=== PATIENT | male | born 1955 | race Caucasian/White ===

== ENCOUNTER → 2016-08-19 | Outpatient (CLI) | payer BC ==
[~2016-08-19] MED LIST: ASPI81TA28 PO; DESM0.2T2 PO; MULT-506 PO; PRED-301 PO
== END | disposition home or self-care (01) ==
LOC: C.LAB1850 10:54
PROVIDERS: ATTEND Internal Medicine
DX: E78.00 Pure hypercholesterolemia, unspecified (principal)

== ENCOUNTER → 2017-03-25 | Outpatient (CLI) | payer BC ==
--- NOTE | 2017-03-25 11:13 | DIAGNOSTIC IMAGING REPORT ---
(CHEST) THORAX WITHOUT CT DOSE: 554.69 mGy.cm HISTORY: Cough. Sarcoidosis. K21.9 Gastroesophageal reflux [id number] TECHNIQUE: Multiaxial CT images of the chest were performed without contrast. A dose lowering technique was utilized adhering to the principles of ALARA. COMPARISON: Chest 03/11/2016. FINDINGS: The central airways are patent. No pneumothorax. No pleural effusions. Multiple scattered tiny calcified and noncalcified pulmonary nodules measuring between 1 and 2 mm most pronounced within the right upper lung zone. There is subtle nodular thickening along the fissures. Mild bronchiectasis and subtle subpleural nodularity. No focal lung consolidations to suggest pneumonia. Focal thickening and irregularity at a bronchovascular bundle within the superior segment of the right lower lobe best seen on image 174. No suspicious lytic or blastic osseous lesions. Hepatic steatosis. The unenhanced spleen and adrenal glands are unremarkable. Mildly distended gas-filled stomach. The esophagus is also mildly distended and gas-filled. No mediastinal or hilar lymphadenopathy. There are few calcified bilateral hilar lymph nodes. Normal caliber thoracic aorta. The heart is normal in size. A single dominant right infrahilar lymph node measures 14 x 9 mm. IMPRESSION: 1. Multiple tiny scattered calcified and noncalcified pulmonary nodules measure between 1 and 2 mm most pronounced within the right upper lung zone. There is also subtle nodular thickening along the fissures and pleura. There is mild bronchiectasis. These findings can be explained by the patient's history of sarcoidosis. There is no significant mediastinal or hilar lymphadenopathy. 2. Focal area of irregularity/thickening at a bronchovascular bundle within the superior segment of the right lower lobe. This may also be due to the patient's sarcoidosis. However, six-month chest CT follow up is recommended to ensure stability. 3. No focal lung consolidations to suggest pneumonia. 4. Moderately distended gas-filled stomach. There is also a mildly distended gas-filled esophagus. Electronically signed by: Vahid Lacey M.D. 03/25/2017 11:12 AM Dictated Date/Time: 03/25/2017 10:59 AM
== END | disposition home or self-care (01) ==
LOC: C.CTS 10:47
PROVIDERS: ATTEND Internal Medicine
DX: D86.9 Sarcoidosis, unspecified (principal); R05 Cough; K21.9 Gastro-esophageal reflux disease without esophagitis; R91.8 Other nonspecific abnormal finding of lung field

== ENCOUNTER 2024-10-13 15:54 | Observation (INO) ==
[2024-10-13 16:19] LABS: Appearance Urine Clear (Clear); Bilirubin Urine Negative (Negative); Blood Urine Negative (Negative); Color Urine Yellow; Glucose Urine UA Negative (Negative); Ketones Urine Negative (Negative); Leukocyte Esterase Urine Negative (Negative); Nitrite Urine Negative (Negative); Protein Urine Negative (Negative); Specific Gravity Urine 1.008 (1.000-1.030); Urobilinogen Urine Negative (Negative)
[2024-10-13 16:21] LABS: Basophils # (auto) 0.04 K/uL (0.00-0.20); Basophils % (auto) 0.7 %; Eosinophils % (auto) 3.6 %; Hematocrit (blood only) 43.1 % (42.0-52.0); Hemoglobin 14.7 g/dl (14.0-18.0); Immature Granulocytes # (auto) 0.01 K/uL (0.01-0.20); Immature Granulocytes % (auto) 0.2 %; Lymphocytes # (auto) 1.01 K/uL (1.20-3.40); Lymphocytes % (auto) 18.3 %; Mean Corpuscular Hemoglobin 31.1 pg (25.0-34.0); Mean Corpuscular Hgb Conc 34.1 g/dL (32.0-36.0); Mean Corpuscular Volume 91.3 fL (80.0-100.0); Mean Platelet Volume 9.6 fL (9.4-12.4); Monocytes % (auto) 16.3 %; Neutrophils # (auto) 3.35 K/uL (1.40-6.50); Neutrophils % (auto) 60.9 %; Platelet Count 173 K/uL (130-400); RDW Coefficient of Variation 13.1 % (11.5-14.5); RDW Standard Deviation 43.8 fL (36.4-46.3); Red Blood Count 4.72 M/uL (4.70-6.10); White Blood Count 5.51 K/ul (4.8-10.8)
[2024-10-13 16:39] LABS: BUN Creatinine Ratio 23.4 (10-20); Calcium 8.6 mg/dl (8.6-10.3); Creatinine Clr Calc Pharmacy 132.9 ml/min; Potassium 4.4 mmol/L (3.5-5.1)
[2024-10-13 16:47] LABS: Albumin Globulin Ratio 1.1 (0.9-2); Albumin Level 3.8 gm/dl (3.4-5.0); Bilirubin,Total 2.2 mg/dl (0.2-1.0); Globulin 3.4 gm/dl (2.5-4.0); Total Protein 7.2 gm/dl (6.0-8.3)
[2024-10-13 17:06] LABS: Thyroid Stimulating Hormone 2.419 uIu/ml (0.300-4.500)
--- NOTE | 2024-10-13 17:23 | Emergency Department Note ---
Impression & Plan Transaminitis, Cut of left hand ED Provider Note Provider: Vishal Rolle MD CHIEF COMPLAINT: Abnormal labs, fatigue HISTORY OF PRESENT ILLNESS: Patient is a 69-year-old gentleman history of sarcoidosis, hypertension, and hypothyroidism presenting here today referred from the outpatient office. Seen there today as 3 days ago he sustained a cut to his hand on the grinding wheel and the left knuckles clean these but did not seek other care. Have become red and somewhat difficult to bend the fingers but has full sensation. Has a chronic cough reported as well but given increased fatigue report and darker urine was sent for blood work. Called to come to the ER as his blood work came back showing signs of elevated liver functions. Patient denies significant abdominal pain or use of alcohol or Tylenol. Has been started on Keflex just today for the presumed infection/cellulitis of the hand. Patient denies a history of liver issues. Noted last couple months some increased fatigue but no fevers. In the last several days having some myalgias. Does occasionally eat some raw shellfish/oysters. Was work in the yard today without issue. PAST MEDICAL HISTORY: As noted above MEDICATIONS: Reviewed home medications SOCIAL HISTORY: Has a cocktail 3-4 times a week. PHYSICAL EXAM: GENERAL: alert and oriented in no acute distress on stretcher Head: normocephalic and atraumatic EYES: No injection, discharge or icterus. NECK: Trachea midline. ENT: Mucous membranes pink and moist. LUNGS: Airway patent. No retractions. Breath sounds clear with good air entry bilaterally. HEART: Regular rate and rhythm. No chest wall tenderness ABDOMEN: Soft and non-tender, without guarding or rebound. No hepatosplenomegaly or masses SKIN: Acyanotic, warm, dry, without rashes EXTREMITIES: Without swelling, tenderness or deformity with 2 less than centimeter size small partially healed lacerations in the posterior left hand just proximal to the fourth and fifth knuckle. Intact strength and movement of the hand. NEUROLOGICAL: No focal deficits. No aphasia. No facial droop or slurred speech. Ambulatory. EK beats. Normal sinus rhythm. No PVC or PAC. No acute ST segment elevation depression QTc 438. CONTINUOUS CARDIAC MONITORING: was ordered and showed a heart rate of bpm in Patient's laboratory studies and imaging reviewed. Differential includes Infection, dehydration, metabolic abnormality, hypo/hyperglycemia, electrolyte disturbance, anemia, hypoxia, cardiac sources, intracerebral event, toxicologic, neurologic, as well as other pathologies. IMPRESSION/MEDICAL DECISION MAKING: Patient without significant abdominal pain/tenderness or nausea vomiting diarrhea. Noted to have significant transaminitis today slightly elevated bilirubin. Blood work repeated here today compared to earlier from this morning. No reported use of alcohol or Tylenol. Tylenol less than as is hepatitis panel. Denies significant other GI symptoms generalized fatigue. Does have some evidence of cellulitis to the hand but no evidence of a deeper hand infection or abscess. There is a Band-Aid and clean it with alcohol briefly. Very superficial. No evidence of tendon injury. Doubt sepsis. Ultrasound with some hepatic steatosis and hepatomegaly with a contracted gallbladder. Reached out discussed with Dr. Archer gastroenterology. Please likely viral and hep a. Formal hepatitis panel was sent. Discussed with the patient. GI stated the patient could have close outpatient follow-up if he is feeling well for close monitoring of his LFTs over the next 2 days. In further communication with the patient's primary care office and provider, they have significant concerns given the elevation at this time and strongly recommended we observe the patient. As such I discussed with the patient to reach out to the hospitalist team to see if we can observe the patient for continued LFTs and again pending hepatitis panel. Discussed with the patient. He also discussed with his PCP via phone. Will have the hospitalist evaluate for further observation here. DIAGNOSIS: Fatigue, transaminitis, left hand wound DISPOSITION: Being evaluated by the hospitalist Patient was agreeable with this plan. Past Med/Surg History Problem List (Updated 10/14/24 @ 00:24 by Vishal Rolle M.D.) Cut of left hand (Acute) Transaminitis (Acute) Osteoarthritis At risk for cardiovascular event Cystic meniscus, other lateral meniscus, unspecified knee Paresthesia of both hands Chronic constipation (Acute) Subclinical hypothyroidism no current medications currently. Primary hypertension Erectile dysfunction Diabetes insipidus (Chronic) follows with PCP. Gastroesophageal reflux disease (Acute) Hypercholesterolemia (Acute) Sarcoidosis (Acute) Medical History Prediabetes Obesity (BMI 30.0-34.9) Colon polyps Chronic steroid use hx to manage patient's sarcoidosis, took patient off the steroid in the Fall 2022. History of COVID-19 Spring 2021: moderate flu like symptoms. no current issues. Hx of temporomandibular joint disorder clicks sometimes - never locked History of lumbar puncture Surgical History History of colonoscopy S/P meniscectomy L knee Family History Mother Liver cancer Other No family history of adverse response to anesthesia No family history of bleeding disorder Denies family history of Ovarian cancer Prostate cancer Myocardial infarction Breast cancer Colorectal cancer Social History Smoking Status: Never smoker Tobacco Type: Smokeless Tobacco (Dip or Chew) Second Hand Exposure: Yes; Do You Dip or Chew Tobacco: Yes; Hx Alcohol Use: Yes Alcohol type: beer Alcohol Intake Frequency Comment: "light to moderate" 1-2 drinks per day Hx Substance Use: No Preferred Language: Greenlandic Communication Ability: Effective Visual Impairment: No Limitations Hearing Ability: Normal Site Safety Representative Required: No Beliefs That Will Affect Care: None marital status: Current Living Situation: Spouse current occupational status: retired current occupation: self employed Feels Safe at Home: Yes Childhood Exposure to Second-Hand Smoke: Yes Dental Care, Regularly: Yes Physical Activity Frequency: 3-4 Times per Week Seatbelt Use: always Sunscreen Use: Yes Assistive Devices: Contacts Allergies Allergies Allergy/AdvReac Type Severity Reaction Status Date / Time No Known Drug Allergies Allergy Verified 10/13/24 11:29 Home Meds Home Medications Medication Instructions Recorded Confirmed multivitamin (Daily Multi-Vitamin 1 tab PO QAM 06/14/19 10/13/24 tablet) ferrous sulfate 325 mg (65 mg 325 mg PO QAM 08/19/23 10/13/24 iron) tablet (Feosol) Previous Rx's Medication Instructions Recorded amlodipine 2.5 mg tablet 2.5 mg PO QAM #90 tabs 03/03/24 rosuvastatin 10 mg tablet 10 mg PO QAM #90 tabs 03/16/24 desmopressin 0.2 mg tablet 0.2 mg PO TID #270 tabs 06/13/24 levothyroxine 88 mcg tablet 88 mcg PO QAM #90 tabs 12/02/24 omeprazole 20 mg capsule,delayed 20 mg PO QAM #90 caps 06/13/24 release cephalexin 500 mg capsule 500 mg PO QID 7 days #28 caps 10/13/24 fluticasone propionate 50 1 spray intranasal BID #16 grams 10/13/24 mcg/actuation nasal spray,suspension (Flonase Allergy Relief) Results & Data (ED) Vital Signs Vital Signs - 24 hr 10/13/24 15:57 10/13/24 17:02 10/13/24 17:45 Temperature 36.7 C Temperature Source Temporal Artery Scan Pulse Rate 85 75 75 Pulse Rate from SpO2 Sensor Pulse Rhythm Regular Respiratory Rate 20 15 Respiratory Effort / Characteristics Non-Labored Respiratory Depth Normal Respiratory Pattern Regular Blood Pressure 149/89 H 153/81 H Blood Pressure Mean 109 105 Blood Pressure Position Sitting Pulse Oximetry 98 Oxygen Delivery Method Room Air Sepsis Recent Fever Within 48 Hours No Sepsis New/Unexplained Change in Mental Status No Sepsis Action Taken by Nursing No Action Required 10/13/24 17:57 Temperature Temperature Source Pulse Rate 78 Pulse Rate from SpO2 Sensor 77 Pulse Rhythm Respiratory Rate 17 Respiratory Effort / Characteristics Respiratory Depth Respiratory Pattern Blood Pressure 149/88 H Blood Pressure Mean 108 Blood Pressure Position Pulse Oximetry 95 Oxygen Delivery Method Sepsis Recent Fever Within 48 Hours Sepsis New/Unexplained Change in Mental Status Sepsis Action Taken by Nursing Laboratory Data 10/13/24 16:07 10/13/24 16:07 Lab Results 10/13/24 10/13/24 Range/Units 16:00 16:07 WBC 5.51 (4.8-10.8) K/ul RBC 4.72 (4.70-6.10) M/uL Hgb 14.7 (14.0-18.0) g/dl Hct 43.1 (42.0-52.0) % MCV 91.3 (80.0-100.0) fL MCH 31.1 (25.0-34.0) pg MCHC 34.1 (32.0-36.0) g/dL RDW Std Deviation 43.8 (36.4-46.3) fL RDW Coeff of Kathya 13.1 (11.5-14.5) % Plt Count 173 (130-400) K/uL MPV 9.6 (9.4-12.4) fL Immature Gran % (Auto) 0.2 % Neut % (Auto) 60.9 % Lymph % (Auto) 18.3 % Bay % (Auto) 16.3 % Eos % (Auto) 3.6 % Baso % (Auto) 0.7 % Neut # (Auto) 3.35 (1.40-6.50) K/uL Lymph # (Auto) 1.01 L (1.20-3.40) K/uL Bay # (Auto) 0.90 H (0.11-0.59) K/uL Eos # (Auto) 0.20 (0.00-0.50) K/uL Baso # (Auto) 0.04 (0.00-0.20) K/uL Immature Gran # (Auto) 0.01 (0.01-0.20) K/uL PT 11.3 (9.0-12.0) Seconds INR 1.0 (0.9-1.1) APTT 28 (21-31) Seconds PTT Ratio 1.0 Sodium 132 L (136-145) mmol/L Potassium 4.4 (3.5-5.1) mmol/L Chloride 102 (98-107) mmol/L Carbon Dioxide 27 (21-32) mmol/L Anion Gap 3 (3-11) BUN 15 (6-23) mg/dl Creatinine 0.64 (0.6-1.4) mg/dl Est Cr Clr Drug Dosing 132.9 ml/min eGFR 102.48 BUN/Creatinine Ratio 23.4 H (10-20) Glucose 114 H (70-99(Fasting)) mg/dl Calcium 8.6 (8.6-10.3) mg/dl Total Bilirubin 2.2 H (0.2-1.0) mg/dl Direct Bilirubin 1.0 H (0-0.2) mg/dl AST 1695 H (13-39) U/L ALT 2134 H (7-52) U/L Alkaline Phosphatase 271 H (34-104) U/L Troponin I High Sens 6.5 (0-20) pg/ml Total Protein 7.2 (6.0-8.3) gm/dl Albumin 3.8 (3.4-5.0) gm/dl Globulin 3.4 (2.5-4.0) gm/dl Albumin/Globulin Ratio 1.1 (0.9-2) Lipase 43 (11-82) U/L TSH 2.419 (0.300-4.500) uIu/ml Acetaminophen < 3 L (10-30) ug/ml Hep Bs Antigen Negative (Negative) Hepatitis C Antibody Negative (Negative) Administered Medications Cephalexin HCl (Cephalexin 500 Mg Cap) 500 mg PO QID [facility]; Protocol Stop: 10/20/24 21:23 Last Admin: 10/13/24 22:00 Dose: 500 mg Documented By: BALDEV Desmopressin Acetate (Desmopressin Acetate 0.1 Mg Tab) 0.2 mg PO BID [facility] Stop: 11/12/24 21:23 Last Admin: 10/13/24 22:00 Dose: 0.2 mg Documented By: BALDEV Fluticasone Propionate (Fluticasone Propionate Na Spr 16 Gm Btl) 1 sprays NA BID [facility] Stop: 11/12/24 21:23 Last Admin: 10/13/24 22:00 Dose: Not Given Documented By: BALDEV Lactated Ringer's (Lr) 1,000 mls @ 125 mls/hr IV .Q8H [facility] Stop: 10/14/24 20:14 Last Admin: 10/13/24 21:59 Dose: 125 mls/hr Documented By: BALDEV Imaging Data Radiologist's Impression: Gallbladder Ultrasound 10/13/24 16:32 INDICATION: Abnormal liver function tests. COMPARISON: None TECHNIQUE: Transverse and longitudinal montero scale and color Doppler images of the right upper quadrant were obtained. FINDINGS: Liver: Measures up to 18.6 cm in length. Diffuse increased hepatic echotexture. No focal hepatic mass or intrahepatic biliary ductal dilatation. Hepatopedal flow in the portal vein. Gallbladder: The gallbladder appears contracted. No shadowing gallstones, gallbladder wall thickening, pericholecystic fluid. The common bile duct is not dilated. Pancreas: Free of focal mass, as visualized. Right kidney: Measures up to 13 cm. Negative for solid renal mass, hydronephrosis, cyst or shadowing calculus. Aorta/IVC: Patent, as visualized. Free fluid: No free fluid. IMPRESSION: 1. Hepatic steatosis and hepatomegaly. 2. Contracted gallbladder. Electronically signed by Angelo Ross 10-13-2024 5:41 PM Discharge Plan Visit Data Chief Complaint: Illness Stated Complaint: POSSIBLE LIVER DAMAGE ED Provider: Vishal Rolle Discharge Problem: Transaminitis, Cut of left hand Patient Disposition: Admitted As Inpatient Discharge Instructions Interventions: ED Discharge Assessment Last Done: 10/13/24 21:09
--- NOTE | 2024-10-13 17:41 | Ultrasound Report ---
INDICATION: Abnormal liver function tests. COMPARISON: None TECHNIQUE: Transverse and longitudinal montero scale and color Doppler images of the right upper quadrant were obtained. FINDINGS: Liver: Measures up to 18.6 cm in length. Diffuse increased hepatic echotexture. No focal hepatic mass or intrahepatic biliary ductal dilatation. Hepatopedal flow in the portal vein. Gallbladder: The gallbladder appears contracted. No shadowing gallstones, gallbladder wall thickening, pericholecystic fluid. The common bile duct is not dilated. Pancreas: Free of focal mass, as visualized. Right kidney: Measures up to 13 cm. Negative for solid renal mass, hydronephrosis, cyst or shadowing calculus. Aorta/IVC: Patent, as visualized. Free fluid: No free fluid. IMPRESSION: 1. Hepatic steatosis and hepatomegaly. 2. Contracted gallbladder. Electronically signed by Angelo Ross 10-13-2024 5:41 PM
[2024-10-13 18:41] LABS: Partial Thromboplastin Time 28 Seconds (21-31); Prothrombin Time 11.3 Seconds (9.0-12.0)
[2024-10-13 18:45] LABS: Troponin I High Sensitivity 6.5 pg/ml (0-20)
--- NOTE | 2024-10-13 19:43 | History & Physical Report ---
Date of Service October 13, 2024 Assessment & Plan (1) Transaminitis: (2) Cut of left hand: Plan 69-year-old male PMHx OA, subclinical hypothyroidism, HTN, ED, diabetes insipidus, GERD, hypercholesterolemia, and sarcoidosis presenting to ED after being referred by his PCP for transaminitis. ED evaluation reveals no leukocytosis, stable H&H; normal PT/INR; CMP sodium 132, normal renal function, ratio 23.4; lipase 43; total bilirubin 2.2, direct 1, AST 1695, ALT 2134, alkaline phosphatase 271; TSH 2.419; CK 572; UA without infection or presence of bilirubin/urobilinogen, acetaminophen level < 3; hepatitis panel pending; EBV pending, CMV pending; GB US with hepatic steatosis and hepatomegaly as well as contracted gallbladder. #Transaminitis Complaints of fatigue/myalgias since ~ June 2024, no clear etiology. Referred by PCP on day of arrival for transaminitis; no current infectious symptoms and overall just having a few months of fatigue and myalgias. No acute illness. 3 to 4 days/week of alcohol use with 1 beverage per sitting. Takes approximately 1 acetaminophen every other day as needed. Discussion held with PCP who recommends admission given newly found transaminitis without clear etiology. Suspect this is likely viral, agreeable to admission to ensure stability in LFTs/PT/INR. 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 No infectious symptoms to include fever/chills, or drainage from area. - CBC without leukocytosis, stable H&H - Hemodynamically stable, no indications of sepsis - Keflex started by PCP as outpatient- may continue #GERD- W/ chronic cough, EG scheduled by PCP; Omeprazole #Hypothyroidism- ? sacroid related; TSH 2.419; Levothyroxine #HLD- Rosuvastatin- HELD at admission #DI- Na 132; Desmopressin #HTN- Amlodipine Dispo: Admit, med/sx VTE prophylaxis: SCDs This document was dictated utilizing [employer] Please excuse any grammatical errors that may be secondary to use of this software. Admission and Anticipated Discharge Date Admission Date: 10/13/2024 History of Present Illness Chief Complaint: Transaminitis, referred by PCP Primary Care Provider: Belen Martines MD 69-year-old male PMHx OA, subclinical hypothyroidism, HTN, ED, diabetes insipidus, GERD, hypercholesterolemia, and sarcoidosis presenting to ED after being referred by his PCP for transaminitis. States that he was evaluated by his PCP on the day of arrival around 1130 to discuss the recent injury he had to his left hand at the fourth knuckle. He was placed on Keflex at that time, and states his pain is very minimal and he is having normal ROM. Labs were drawn at that time and around 1500 his PCP called him stating to go to the ED for evaluation of abnormal liver enzymes. Additionally, he was concerned because since June 2024 he is healthy has had worsening fatigue and myalgias. This is not necessarily limiting his day-to-day activity, but it has been progressing and that concerned him. He also notes that around 1 week SPL[employer] LEATHER MOSSER he had some dark- colored urine which occurred once or twice and then resolved. He does report food poisoning from 2 9 muscles as well as eating raw oysters while in [place] earlier in the year. He did have COVID in July 2024. Patient states that he is not having any abdominal pain, N/V/D/C, fever/chills, or infectious symptoms. Reports that he does drink maybe 3-4 times a week, having 1 beverage per sitting/day. Also admits to using some Tylenol, normally 1 OTC pill every other day for body aches or arthritic pain. Patient has not been ill recently, just feels as though his fatigue and myalgias has been worsening. Denying chest pain, shortness of breath, palpitations, abdominal pain, N/V/D/C, numbness/tingling, LUTS, fever/chills, URI symptoms, or syncope. Has not noticed jaundice discoloration to skin, this is supported by his . ED evaluation reveals no leukocytosis, stable H&H; normal PT/INR; CMP sodium 132, normal renal function, ratio 23.4; lipase 43; total bilirubin 2.2, direct 1, AST 1695, ALT 2134, alkaline phosphatase 271; TSH 2.419; CK 572; UA without infection or presence of bilirubin/urobilinogen, acetaminophen level < 3; hepatitis panel pending; EBV pending, CMV pending; GB US with hepatic steatosis and hepatomegaly as well as contracted gallbladder. Please see Dr. Rubi's attestation for adjustments/additions to treatment plan. Allergies Allergy/AdvReac Type Severity Reaction Status Date / Time No Known Drug Allergies Allergy Verified 10/13/24 11:29 Home Medications Medication Instructions Recorded Confirmed Type multivitamin (Daily Multi-Vitamin 1 tab PO QAM 06/14/19 10/13/24 History tablet) ferrous sulfate 325 mg (65 mg 325 mg PO QAM 08/19/23 10/13/24 History iron) tablet (Feosol) amlodipine 2.5 mg tablet 2.5 mg PO QAM #90 tabs 03/03/24 10/13/24 Rx rosuvastatin 10 mg tablet 10 mg PO QAM #90 tabs 03/16/24 10/13/24 Rx desmopressin 0.2 mg tablet 0.2 mg PO TID #270 tabs 06/13/24 10/13/24 Rx levothyroxine 88 mcg tablet 88 mcg PO QAM #90 tabs 06/13/24 10/13/24 Rx omeprazole 20 mg capsule,delayed 20 mg PO QAM #90 caps 06/13/24 10/13/24 Rx release cephalexin 500 mg capsule 500 mg PO QID 7 days #28 caps 10/13/24 10/13/24 Rx fluticasone propionate 50 1 spray intranasal BID #16 grams 10/13/24 10/13/24 Rx mcg/actuation nasal spray,suspension (Flonase Allergy Relief) Past Med/Surg History Problem List (Updated 10/13/24 @ 20:02 by Luis Celestin PA-C) Cut of left hand Transaminitis Osteoarthritis At risk for cardiovascular event Cystic meniscus, other lateral meniscus, unspecified knee Paresthesia of both hands Chronic constipation (Acute) Subclinical hypothyroidism no current medications currently. Primary hypertension Erectile dysfunction Diabetes insipidus (Chronic) follows with PCP. Gastroesophageal reflux disease (Acute) Hypercholesterolemia (Acute) Sarcoidosis (Acute) Medical History Prediabetes Obesity (BMI 30.0-34.9) Colon polyps Chronic steroid use hx to manage patient's sarcoidosis, took patient off the steroid in the Fall 2022. History of COVID-19 Spring 2021: moderate flu like symptoms. no current issues. Hx of temporomandibular joint disorder clicks sometimes - never locked History of lumbar puncture Surgical History History of colonoscopy S/P meniscectomy L knee Family History Mother Liver cancer Other No family history of adverse response to anesthesia No family history of bleeding disorder Denies family history of Ovarian cancer Prostate cancer Myocardial infarction Breast cancer Colorectal cancer Social History Smoking Status: Never smoker Tobacco Type: Smokeless Tobacco (Dip or Chew) Second Hand Exposure: Yes; Do You Dip or Chew Tobacco: No (used chewing tobacco for several years in the 1970s); Hx Alcohol Use: Yes Alcohol type: beer, wine and hard liquor Alcohol Intake Frequency Comment: "light to moderate" 1-2 drinks per day Hx Substance Use: No Preferred Language: Thai Communication Ability: Effective Visual Impairment: No Limitations Hearing Ability: Normal Ditch Repairer Required: No Beliefs That Will Affect Care: None marital status: Current Living Situation: Spouse current occupational status: retired current occupation: self employed Feels Safe at Home: Yes Childhood Exposure to Second-Hand Smoke: Yes Dental Care, Regularly: Yes Physical Activity Frequency: 3-4 Times per Week Seatbelt Use: always Sunscreen Use: Yes Assistive Devices: Contacts Review of Systems Review of Systems: All systems reviewed & are unremarkable except as noted in Subjective Physical Exam Physical Exam: General: No acute distress Skin: Warm and dry, appears tanned but no clear jaundice; left hand at fourth finger knuckle with scabbed over wound, no seepage, slightly erythematous but normal ROM Head: Normocephalic, atraumatic Eyes: PERRL, conjunctivae clear, sclera non-icteric ENT: External ear and ear canal without swelling; nose atraumatic; good dentition, tongue normal appearance, pharynx normal Neck: Supple, no LAD Cardio: RRR, no M/G/R, S1 and S2 normal Resp: No respiratory distress, Lungs CTA in all lobes bilaterally, no wheezes, rales, or rhonchi Abdomen: Soft, symmetric, nontender; No masses or hepatosplenomegaly; Bowel sounds normoactive MSK: No deformities; pulses palpable and equal; no edema. Neuro: Awake, alert; Sensation intact bilaterally; CN grossly intact Psych: Appropriate mood and affect; good judgement and insight. present in room at time of visit. Results & Data Results & Data Vital Signs (Past 12 Hours) Vital Signs Temp Pulse Resp BP Pulse Ox O2 Del Method 10/13/24 17:57 78 17 149/88 H 95 10/13/24 17:45 75 15 153/81 H 10/13/24 17:02 75 10/13/24 15:57 36.7 C 85 20 149/89 H 98 Room Air Laboratory Results 10/13/24 10/13/24 10/13/24 Unknown 16:07 16:00 WBC 5.51 RBC 4.72 Hgb 14.7 Hct 43.1 MCV 91.3 MCH 31.1 MCHC 34.1 RDW Std Deviation 43.8 RDW Coeff of Kathya 13.1 Plt Count 173 MPV 9.6 Immature Gran % (Auto) 0.2 Neut % (Auto) 60.9 Lymph % (Auto) 18.3 [place] % (Auto) 16.3 Eos % (Auto) 3.6 Baso % (Auto) 0.7 Neut # (Auto) 3.35 Lymph # (Auto) 1.01 L [place] # (Auto) 0.90 H Eos # (Auto) 0.20 Baso # (Auto) 0.04 Immature Gran # (Auto) 0.01 PT 11.3 INR 1.0 APTT 28 PTT Ratio 1.0 Sodium 132 L Potassium 4.4 Chloride 102 Carbon Dioxide 27 Anion Gap 3 BUN 15 Creatinine 0.64 Est Cr Clr Drug Dosing 132.9 eGFR 102.48 BUN/Creatinine Ratio 23.4 H Glucose 114 H Calcium 8.6 Total Bilirubin 2.2 H Direct Bilirubin 1.0 H AST 1695 H ALT 2134 H Alkaline Phosphatase 271 H Troponin I High Sens 6.5 Total Protein 7.2 Albumin 3.8 Globulin 3.4 Albumin/Globulin Ratio 1.1 Lipase 43 TSH 2.419 Urine Color Yellow Urine Appearance Clear Urine pH 7.0 Ur Specific [place] 1.008 Urine Protein Negative Urine Glucose (UA) Negative Urine Ketones Negative Urine Blood Negative Urine Nitrite Negative Urine Bilirubin Negative Urine Urobilinogen Negative Ur Leukocyte Esterase Negative Acetaminophen < 3 L Diagnostic Findings Gallbladder Ultrasound 10/13/24 16:32 INDICATION: Abnormal liver function tests. COMPARISON: None TECHNIQUE: Transverse and longitudinal montero scale and color Doppler images of the right upper quadrant were obtained. FINDINGS: Liver: Measures up to 18.6 cm in length. Diffuse increased hepatic echotexture. No focal hepatic mass or intrahepatic biliary ductal dilatation. Hepatopedal flow in the portal vein. Gallbladder: The gallbladder appears contracted. No shadowing gallstones, gallbladder wall thickening, pericholecystic fluid. The common bile duct is not dilated. Pancreas: Free of focal mass, as visualized. Right kidney: Measures up to 13 cm. Negative for solid renal mass, hydronephrosis, cyst or shadowing calculus. Aorta/IVC: Patent, as visualized. Free fluid: No free fluid. IMPRESSION: 1. Hepatic steatosis and hepatomegaly. 2. Contracted gallbladder. Electronically signed by Angelo Ross 10-13-2024 5:41 PM Code Status & VTE Plan Code Status Full VTE Prophylaxis Plan VTE Prophylaxis will be ordered: Yes Supervising Physician Co-Signing Physician Notes I personally saw and examined the patient. I independently reviewed the labs, imaging, problem list, medication list, past medical history and family history. I verified all dumont points and agree with Luis Celestin PA-C with the following exceptions and/or additions: 69 year old male presents to the ER on advice of his PCP due to elevated transaminases on outpatient labs. Patient feeling generally well but perhaps a little fatigued since July. O/E HS RRR, no murmurs, Chest CTAB, Abdo SNT, no scleral icterus, no tremor, A&Ox3, cut on left hand with mild surrounding erythema A/P Elevated transaminitis (new since June) - No abdominal pain to suggest choledocholithiasis or obstruction seen on US. Lipase WNL. Suspected viral hepatitis, EMV and CMV testing added to hepatitis panel. No current sign of acute liver failure. Has history of sarcoid (biopsy proven in 1970s) and stopped chronic prednisone within the last 2 years however no mention of granulomas on liver US. INR and Platelets normal. Discussed expected clinical course and labs to resolve over weeks which can be monitored by PCP. Discussed with PCP and will observe patient overnight and make sure stable INR/Plt. LFTs may worsen overnight but this would not be a reason for continued admission as may take days/weeks to peak. Stop statin. Advised patient to stop drinking alcohol although given amount this is not suspected to be cause. Stop acetaminophen. Consult GI for further advice. Mildly elevated creatine kinase - no muscle weakness/pain to suggest rhabdomyolysis, do not suspect contributing towards AST/ALT elevation, will give IV fluids overnight and repeat level in AM. PG Care Time/CCT Total # of Minutes Spent Total Time Spent with Patient: Total time spent is greater than 50% in coordination of care (as documented) at patient's floor/unit and/or counseling patient: Coding Level of Care Code 65903 INT INP/OBS CARE 375MIN Diagnoses Transaminitis R74.01 Cut of left hand S61.412A
[2024-10-13 20:49] LABS: Hep B Surface Ag with confirm Negative (Negative)
[2024-10-13 20:55] LABS: Hep C Ab Rflx HepCQuant RNA Negative (Negative)
[2024-10-13] MEDS ORDERED: ONDANSETRON INJ 2 MG/ML 2 ML VIAL IV PRN (21:24)
[2024-10-13] MEDS ORDERED: POLYETHYLENE (MIRALAX) 17 GM PACK PO PRN (21:24)
[2024-10-13] MEDS ORDERED: MELATONIN 3 MG TAB PO PRN (21:24)
[2024-10-13 21:40] LABS: Monotest Negative (Negative)
[2024-10-13] MEDS: LACTATED RINGER'S 1,000 ML IV SCH (21:59)
[2024-10-13] MEDS: FLUTICASONE PROPIONATE NA SPR 16 GM BTL SCH (22:00)
[2024-10-13] MEDS: DESMOPRESSIN ACETATE 0.1 MG TAB PO SCH (22:00)
[2024-10-13] MEDS: cephALEXin 500 MG CAP PO SCH (22:00)
[2024-10-13 22:16] LABS: EBV Nuclear Antigen IgG Ab Negative; EBV Nuclear Antigen IgG Quant < 3.0 U/mL (< 18.0)
[2024-10-13 22:17] LABS: EBV Early Antigen IgG Ab Negative (Negative); EBV Early Antigen IgG Quant < 5.0 U/mL (< 9.0); EBV IgM Quant < 10.0 U/mL (< 36.0)
[2024-10-14] MEDS: LEVOTHYROXINE SODIUM 88 MCG TABLET PO SCH (05:51)
[2024-10-14 08:14] LABS: Hematocrit (blood only) 39.6 % (42.0-52.0); Hemoglobin 13.4 g/dl (14.0-18.0); Mean Corpuscular Hemoglobin 30.9 pg (25.0-34.0); Mean Corpuscular Hgb Conc 33.8 g/dL (32.0-36.0); Mean Corpuscular Volume 91.5 fL (80.0-100.0); Mean Platelet Volume 10.6 fL (9.4-12.4); Platelet Count 152 K/uL (130-400); RDW Coefficient of Variation 13.2 % (11.5-14.5); RDW Standard Deviation 44.8 fL (36.4-46.3); Red Blood Count 4.33 M/uL (4.70-6.10)
[2024-10-14 08:36] LABS: INR 1.1 (0.9-1.1); Prothrombin Time 11.8 Seconds (9.0-12.0)
[2024-10-14 08:47] LABS: Alanine Aminotransferase 1914 U/L (7-52); Albumin Level 3.3 gm/dl (3.4-5.0); Alkaline Phosphatase 220 U/L (34-104); Aspartate Aminotransferase 1582 U/L (13-39); Bilirubin Direct 1.1 mg/dl (0-0.2); Bilirubin,Total 2.2 mg/dl (0.2-1.0); Creatine Kinase 628 U/L (30-223); Iron 196 mcg/dl (35-175); Total Iron Binding Cap Calc 258 mcg/dl (250-450); Total Protein 6.3 gm/dl (6.0-8.3); Transferrin 184 mg/dl (200-360); Transferrin (FE) Percent Satur 76 % (20-50)
[2024-10-14] MEDS: FERROUS SULFATE 325 MG TAB PO SCH (09:07)
[2024-10-14] MEDS: PANTOprazole 40 MG TAB PO SCH (09:07)
[2024-10-14] MEDS: amLODIPine BESYLATE 5 MG TAB PO SCH (09:08)
[2024-10-14 09:28] LABS: Ferritin > 7500.0 ng/ml (8-388)
--- NOTE | 2024-10-14 10:21 | Gastrointestinal Consultation ---
Date of Consultation October 14, 2024 Assessment & Plan (1) Transaminitis: Patients transaminitis is likely secondary to something transient like viral infection given that he had unremarkable LFTs just back a few months ago. Results indicate infection with EBV, but the time since primary infection cannot be determined. he has no GI complaints currently. - would continue to trend LFTs and await pending labs. Suspect that this will trend down over several weeks. Supervising Physician Co-Signing Physician Notes I personally saw and examined the patient. I have reviewed the chart and agree with the documentation provided by the BUSINESS UNIT CONTROLLER including discussion about the assessment, treatment and plan. Briefly, 69 year old male with a past medical history of osteoarthritis, subclinical hypothyroidism, HTN, ED, diabetes insipidus, GERD, hypercholesterolemia, and sarcoidosis who presented to ED on 10/13 at the recommendations of his PCP after he was found to have elevated LFTs. Patient notes that over the past several weeks he has been dealing with malaise and being run down. LFTs were notably unremarkable in 06/13/24. 06/13/24 LFTs unremarkable outside of alk phos 119. 10/13/24 T bili 2.2, D bili 1, AST 1695, ALT 2134, Alk 271. hep C negative. mono negative. EBV suggests prior infection. Hep B surface antigen is negative but the hep B core IgM is pending. Hep A antibody IgM is pending 10/14/24 T bili 2.2, D bili 0.1, AST 1582, ALT 1914. He has no encephalopathy and other than fatigue feels well. He has had no new medications and reports no toxin exposure. He has not taken Tylenol. His only travel has been to [facility] in the last 3 to 4 months. 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 He is presenting with acute liver injury with a negative workup so far. Central diabetes insipidus and autoimmune hepatitis are linked and can occur concurrently. Highest in the differential is autoimmune hepatitis and we need to check anti-smooth muscle antibody ATR and total IgG. If these are elevated we can consider Solu-Medrol. His hep B core IgM is pending as is his hepatitis A. However he does not give a great history for acute hepatitis secondary to viral infection. If everything is negative, he will need to get transferred to [place] for consideration of a liver biopsy and then empiric steroids. History of Present Illness Reason for Consultation: transaminitis, ? viral hep Requesting Physician: Elenita JONAS Attending Physician: Tracee Jacobs MD History of Present Illness Patient is a 69 year old male with a past medical history of osteoarthritis, subclinical hypothyroidism, HTN, ED, diabetes insipidus, GERD, hypercholesterolemia, and sarcoidosis who presented to ED on 10/13 at the recommendations of his PCP after he was found to have elevated LFTs. Patient notes that over the past several weeks he has been dealing with malaise and being run down. LFTs were notably unremarkable in 06/13/24. GI ROS are otherwise unremarkable. 06/13/24 LFTs unremarkable outside of alk phos 119. 10/13/24 T bili 2.2, D bili 1, AST 1695, ALT 2134, Alk 271. hep C negative. mono negative. EBV suggests infection of uncertain timing. CMV pending. 10/14/24 T bili 2.2, D bili 0.1, AST 1582, ALT 1914. US 10/13/24 Hepatic steatosis and hepatomegaly. Allergies Allergy/AdvReac Type Severity Reaction Status Date / Time No Known Drug Allergies Allergy Verified 10/13/24 11:29 Home Medications Medication Instructions Recorded Confirmed Type multivitamin (Daily Multi-Vitamin 1 tab PO QAM 06/14/19 10/13/24 History tablet) ferrous sulfate 325 mg (65 mg 325 mg PO QAM 08/19/23 10/13/24 History iron) tablet (Feosol) amlodipine 2.5 mg tablet 2.5 mg PO QAM #90 tabs 03/03/24 10/13/24 Rx rosuvastatin 10 mg tablet 10 mg PO QAM #90 tabs 03/16/24 10/13/24 Rx desmopressin 0.2 mg tablet 0.2 mg PO TID #270 tabs 06/13/24 10/13/24 Rx levothyroxine 88 mcg tablet 88 mcg PO QAM #90 tabs 06/13/24 10/13/24 Rx omeprazole 20 mg capsule,delayed 20 mg PO QAM #90 caps 06/13/24 10/13/24 Rx release cephalexin 500 mg capsule 500 mg PO QID 7 days #28 caps 10/13/24 10/13/24 Rx fluticasone propionate 50 1 spray intranasal BID #16 grams 10/13/24 10/13/24 Rx mcg/actuation nasal spray,suspension (Flonase Allergy Relief) Patient History Medical History Prediabetes Obesity (BMI 30.0-34.9) Colon polyps Chronic steroid use hx to manage patient's sarcoidosis, MD took patient off the steroid in the Fall 2022. History of COVID-19 Spring 2021: moderate flu like symptoms. no current issues. Hx of temporomandibular joint disorder clicks sometimes - never locked History of lumbar puncture Surgical History History of colonoscopy S/P meniscectomy L knee Family History Mother Liver cancer Other No family history of adverse response to anesthesia No family history of bleeding disorder Denies family history of Ovarian cancer Prostate cancer Myocardial infarction Breast cancer Colorectal cancer Social History Smoking Status: Never smoker Tobacco Type: Smokeless Tobacco (Dip or Chew) Second Hand Exposure: Yes; Do You Dip or Chew Tobacco: Yes; Hx Alcohol Use: Yes Alcohol type: beer Alcohol Intake Frequency Comment: "light to moderate" 1-2 drinks per day Hx Substance Use: No Preferred Language: [place] Verdean Communication Ability: Effective Visual Impairment: No Limitations Hearing Ability: Normal Body Trimmer Upholsterer Required: No Beliefs That Will Affect Care: None marital status: Current Living Situation: Spouse current occupational status: retired current occupation: self employed Feels Safe at Home: Yes Childhood Exposure to Second-Hand Smoke: Yes Dental Care, Regularly: Yes Physical Activity Frequency: 3-4 Times per Week Seatbelt Use: always Sunscreen Use: Yes Assistive Devices: Contacts Review of Systems Review of Systems: All systems reviewed & are unremarkable except as noted in HPI & below Physical Exam Constitutional: WD/WN, vitals as above Respiratory: normal respiratory effort, lungs clear to auscultation Cardiovascular: Rate/Rhythm: regular rate and regular rhythm Gastrointestinal (Abdomen): normal bowel sounds, soft, nontender, no hepatosplenomegaly Psychiatric: Orientation: alert and oriented x 3 Affect: euthymic affect Results & Data Vital Signs (Past 12 Hours) Vital Signs Temp Pulse Resp BP Pulse Ox O2 Del Method 10/14/24 07:38 97.9 F 58 L 18 123/73 94 Room Air Coding Level of Care Code 63409 INT INP/OBS CARE 2/55MIN Diagnoses Transaminitis R74.01
[2024-10-14] MEDS: OPTIRAY 320 100ml IV ONE (11:39)
--- NOTE | 2024-10-14 12:49 | CT Scan Report ---
CT liver wo/w con HISTORY: 69 years-old Male transaminitis, hx sarcoidosis acutely elevated LFTs COMPARISON: Ultrasound study 10/13/2024, chest CT 03/25/2017 TECHNIQUE: Multiple axial CT images of the abdomen utilizing liver protocol were obtained with and wi thout IV contrast. A dose lowering technique was used consistent with the principals of TREMAINE. FINDINGS: No acute abnormality identified within the imaged lower chest. Lung bases are generally clear. There is no pneumatosis or pneumoperitoneum. The spleen, pancreas and adrenal glands are unremarkable. Contracted gallbladder with pericholecystic edema. Edema within the brady hepatis tracks along the portal vein and pancreaticoduodenal groove. T he portal vein is patent. No biliary ductal dilation. The liver is enlarged measuring up to 20 cm in length. Hepatic steatosis. No hepatic mass identified. There is subtle marginal nodularity of the lydia er. There is suggestion of umbilical vein recanalization. Subcentimeter subcentimeter and mildly enla rged lymph nodes are seen within the pericaval and periportal distributions. Mild nonspecific bilateral perinephric stranding. No urolith or hydronephrosis. No enhancing renal ma ss lesions are seen. Atherosclerosis of the aorta and branch vessels. No aneurysm. Small hiatal herni a. No bowel obstruction or bowel wall thickening. The imaged appendix appears unremarkable. Unremarka ble soft tissues. No acute fracture. IMPRESSION: 1. Hepatomegaly with hepatic steatosis and findings suspicious for early cirrhosis. No hepatic mass l esions identified 2. Contracted gallbladder with nonspecific pericholecystic edema. 3. No biliary ductal dilation. 4. No bowel obstruction or bowel wall thickening. ACT 112: Negative or not required by law. The above report was generated using voice recognition software. It may contain grammatical, syntax o r spelling errors. Electronically signed by: Andrei Lovett M.D. 10/14/2024 12:48 PM
[2024-10-14] MEDS: DESMOPRESSIN ACETATE 0.1 MG TAB PO SCH (13:29)
[2024-10-14 15:41] LABS: Immunoglobulin G 1244.7 mg/dl (635-1741)
--- NOTE | 2024-10-14 17:26 | Hospitalist Progress Note ---
<Statement entered by Tracee Jacobs MD - 10/15/24 07:14> 69 y/o with hepatitis. Malaise since July. History of sarcoidosis. No medication exposures to suggest DILI. On labs so far ferritin and transferrin sat elevated potentially iron overload, hemachromotosis testing sent. Hx sarcoidosis no longer on prednisone last few years - obtained liver CT no granulomatous disease seen. Viral, autoimmune etiologies also possible. Arranged follow up with engineer geophysical laboratory. If labs stable overnight plan for discharge with close outpatient follow up. Date of Service October 14, 2024 Assessment & Plan (1) Transaminitis: (2) Cut of left hand: Plan 69-year-old male PMHx OA, subclinical hypothyroidism, HTN, ED, diabetes insipidus, GERD, hypercholesterolemia, and sarcoidosis presenting to ED after being referred by his PCP for transaminitis. #Transaminitis Complaints of fatigue/myalgias since ~ June 2024 No clear etiology, may be autoimmune in nature. Possible Hemochromatosis given iron overload. CBC w/ stable H&H, plt mildly decreased to 152. INR 1.1 LFTs w/ TB 2.2, DB 1.1, AST/ALT 1582/1914, AP 220 CK 628, elevated iron @ 196, transferrin sat 76%, ferritin > 7500 EBV IgG + but IgM negative - less likely EBV infection, mono negative, CMV pending Hep C negative, Hep B/A pending Autoimmune work up including ART, AMA, and Actin ab pending. Hemochromatosis pending. RUQ US -> hepatic steatosis/hepatomegaly Triple Phase CT of Liver -> concern early cirrhosis, hepatic steatosis, no lesions/granulomas identified. GI consulted - > recommending trending, may be viral in nature Discontinue Iron supplement, likely contributing to elevated iron levels. Statin likely not contributing but can continue to hold. Monitor PT/INR & Plt overnight to ensure stability prior to discharge. Will plan to check LFTs as well. Patient to follow up w/ a engineer geophysical laboratory @ [facility] [place] upon discharge. #L hand wound Patient had cut his hand approximately 2 days [employer] and was evaluated by PCP on the day of arrival who started him on Keflex. No infectious symptoms to include fever/chills, or drainage from area. - CBC without leukocytosis, stable H&H - Hemodynamically stable, no indications of sepsis - Keflex started by PCP as outpatient- may continue Chronic conditions: GERD- W/ chronic cough, EGD scheduled by PCP; Omeprazole Hypothyroidism- ? sacroid related; TSH 2.419; Levothyroxine HLD- Rosuvastatin- HELD at admission DI- Na 132; Desmopressin HTN- Amlodipine Dispo: Admit, med/sx VTE prophylaxis: SCDs Updated at bedside 10/14. Case discussed extensively w/ Dr. Jacobs 10/14. Admission and Anticipated Discharge Date Admission Date: October 13, 2024 Subjective Patient seen and examined this morning. Patient reports to be feeling okay today. He reports no OTC supplements. Reports he was on iron because he was having joint aches and his PCP recommended it. Denies excessive alcohol intake. Denies any history of liver disease. Physical Exam Constitutional: WD/WN, vitals as above Eyes: PERRL, conjunctivae normal, anicteric sclerae Respiratory: breathing unlabored Cardiovascular: well perfused Neurologic: PERRL, EOMI, accommodation nl, no face palsy, no dysarthria Psychiatric: A+Ox3, euthymic affect Results & Data Results & Data Vital Signs (Past 12 Hours) Vital Signs Temp Pulse Resp BP Pulse Ox O2 Del Method 10/14/24 15:55 36.7 C 63 18 130/82 95 Room Air 10/14/24 07:38 36.6 C 58 L 18 123/73 94 Room Air PG Care Time/CCT Total # of Minutes Spent Total Time Spent with Patient: Total time spent is greater than 50% in coordination of care (as documented) at patient's floor/unit and/or counseling patient: Coding Level of Care Code 44671 SUB INP/OBS CARE 350MIN Diagnoses Transaminitis R74.01 Cut of left hand S61.412A
[2024-10-15 07:28] VITALS: BP 125/81; PULSE 52; RESP 18; TEMP 97.5; O2SAT 96
[2024-10-15 07:38] LABS: BUN Creatinine Ratio 17.2 (10-20); Calcium 8.4 mg/dl (8.6-10.3); Creatinine Clr Calc Pharmacy 144.5 ml/min; Potassium 4.3 mmol/L (3.5-5.1)
[2024-10-15 07:39] LABS: Hematocrit (blood only) 40.4 % (42.0-52.0); Hemoglobin 13.9 g/dl (14.0-18.0); Mean Corpuscular Hemoglobin 30.8 pg (25.0-34.0); Mean Corpuscular Hgb Conc 34.4 g/dL (32.0-36.0); Mean Corpuscular Volume 89.6 fL (80.0-100.0); Mean Platelet Volume 9.8 fL (9.4-12.4); Platelet Count 180 K/uL (130-400); RDW Coefficient of Variation 13.2 % (11.5-14.5); RDW Standard Deviation 43.2 fL (36.4-46.3); Red Blood Count 4.51 M/uL (4.70-6.10); White Blood Count 4.58 K/ul (4.8-10.8)
[2024-10-15 07:42] LABS: INR 1.1 (0.9-1.1); Prothrombin Time 11.6 Seconds (9.0-12.0)
--- NOTE | 2024-10-15 08:03 | Gastroenterology Progress Note ---
Date of Service October 15, 2024 Assessment & Plan (1) Acute hepatitis: Plan: Suspect acute viral hepatitis. Hepatitis A serology still pending. Elevated ferritin and iron saturation related to acute hepatitis and possibly iron supplementation. Elevated creatinine kinase can be seen in acute hepatitis as well. No signs of hepatic failure or hepatic encephalopathy. Coagulation remains normal. Continue regular diet monitor liver enzymes today's labs are still pending. CT scan does not suggest iron overload as cause for liver disease. Admission and Anticipated Discharge Date Admission Date: October 13, 2024 Subjective Resting comfortably denies shortness of breath chest pain or abdominal pain. Physical Exam Physical Exam: Eyes; anicteric HENT No masses Chest clear to A Cor S1, S2 physiologic Abd: softer nontender no masses Ext no edema No asterixis Results & Data Results & Data Vital Signs (Past 12 Hours) Vital Signs Temp Pulse Resp BP Pulse Ox O2 Del Method 10/15/24 07:27 36.4 C L 52 L 18 125/81 96 Room Air Laboratory Results Laboratory Results - last 48 hr 10/13/24 10/13/24 10/13/24 16:00 16:07 20:51 WBC 5.51 RBC 4.72 Hgb 14.7 Hct 43.1 MCV 91.3 MCH 31.1 MCHC 34.1 RDW Std Deviation 43.8 RDW Coeff of Kathya 13.1 Plt Count 173 MPV 9.6 Immature Gran % (Auto) 0.2 Neut % (Auto) 60.9 Lymph % (Auto) 18.3 Millard % (Auto) 16.3 Eos % (Auto) 3.6 Baso % (Auto) 0.7 Neut # (Auto) 3.35 Lymph # (Auto) 1.01 L Millard # (Auto) 0.90 H Eos # (Auto) 0.20 Baso # (Auto) 0.04 Immature Gran # (Auto) 0.01 PT 11.3 INR 1.0 APTT 28 PTT Ratio 1.0 Sodium 132 L Potassium 4.4 Chloride 102 Carbon Dioxide 27 Anion Gap 3 BUN 15 Creatinine 0.64 Est Cr Clr Drug Dosing 132.9 eGFR 102.48 BUN/Creatinine Ratio 23.4 H Glucose 114 H Calcium 8.6 Iron TIBC Transferrin Transferrin % Sat Ferritin Total Bilirubin 2.2 H Direct Bilirubin 1.0 H AST 1695 H ALT 2134 H Alkaline Phosphatase 271 H Total Creatine Kinase Troponin I High Sens 6.5 Total Protein 7.2 Albumin 3.8 Globulin 3.4 Albumin/Globulin Ratio 1.1 Lipase 43 TSH 2.419 Urine Color Urine Appearance Urine pH Ur Specific [place] Urine Protein Urine Glucose (UA) Urine Ketones Urine Blood Urine Nitrite Urine Bilirubin Urine Urobilinogen Ur Leukocyte Esterase Acetaminophen < 3 L IgG EBV Capsid Ag IgG Ab Positive EBV Caps Ag IgG Sig Str 562.0 EBV Capsid Ag IgM Ab Negative EBV Caps Ag IgM Sig Str < 10.0 EBV Early Antigen IgG Negative EBV EA Signal Strength < 5.0 EBV Nuclear Antigen Ab Negative EBV Nucl Ag IgG Sig Str < 3.0 EBV Interpretation See Comment Hep Bs Antigen Negative Hepatitis C Antibody Negative Monoscreen Negative 10/13/24 10/14/24 10/15/24 Unknown 07:24 06:39 WBC 4.50 L 4.58 L RBC 4.33 L 4.51 L Hgb 13.4 L 13.9 L Hct 39.6 L 40.4 L MCV 91.5 89.6 MCH 30.9 30.8 MCHC 33.8 34.4 RDW Std Deviation 44.8 43.2 RDW Coeff of Kathya 13.2 13.2 Plt Count 152 180 MPV 10.6 9.8 Immature Gran % (Auto) Neut % (Auto) Lymph % (Auto) Millard % (Auto) Eos % (Auto) Baso % (Auto) Neut # (Auto) Lymph # (Auto) Millard # (Auto) Eos # (Auto) Baso # (Auto) Immature Gran # (Auto) PT 11.8 11.6 INR 1.1 1.1 APTT PTT Ratio Sodium 130 L Potassium 4.3 Chloride 102 Carbon Dioxide 25 Anion Gap 3 BUN 10 Creatinine 0.58 L Est Cr Clr Drug Dosing 144.5 eGFR 105.57 BUN/Creatinine Ratio 17.2 Glucose 92 Calcium 8.4 L Iron 196 H TIBC 258 Transferrin 184 L Transferrin % Sat 76 H Ferritin > 7500.0 H Total Bilirubin 2.2 H Direct Bilirubin 1.1 H AST 1582 H ALT 1914 H Alkaline Phosphatase 220 H Total Creatine Kinase 628 H Troponin I High Sens Total Protein 6.3 Albumin 3.3 L Globulin Albumin/Globulin Ratio Lipase TSH Urine Color Yellow Urine Appearance Clear Urine pH 7.0 Ur Specific [place] 1.008 Urine Protein Negative Urine Glucose (UA) Negative Urine Ketones Negative Urine Blood Negative Urine Nitrite Negative Urine Bilirubin Negative Urine Urobilinogen Negative Ur Leukocyte Esterase Negative Acetaminophen IgG 1244.7 EBV Capsid Ag IgG Ab EBV Caps Ag IgG Sig Str EBV Capsid Ag IgM Ab EBV Caps Ag IgM Sig Str EBV Early Antigen IgG EBV EA Signal Strength EBV Nuclear Antigen Ab EBV Nucl Ag IgG Sig Str EBV Interpretation Hep Bs Antigen Hepatitis C Antibody Monoscreen PG Care Time/CCT Total # of Minutes Spent Total Time Spent with Patient: Total time spent is greater than 50% in coordination of care (as documented) at patient's floor/unit and/or counseling patient: Coding Level of Care Code 35454 SUB INP/OBS CARE 3/50MIN Diagnoses Acute hepatitis B17.9
[2024-10-15 08:12] LABS: Albumin Globulin Ratio 1.1 (0.9-2); Albumin Level 3.4 gm/dl (3.4-5.0); Bilirubin,Total 2.2 mg/dl (0.2-1.0); Globulin 3.2 gm/dl (2.5-4.0); Total Protein 6.6 gm/dl (6.0-8.3)
--- NOTE | 2024-10-15 09:50 | Discharge Summary ---
Discharge Summary Date of Service October 15, 2024 Principal Dx & Hospital Course #1 = Principal Diagnosis (1) Transaminitis: (2) Cut of left hand: Plan 69-year-old male PMHx OA, subclinical hypothyroidism, HTN, ED, diabetes insipidu s, GERD, hypercholesterolemia, and sarcoidosis presenting to ED after being referred by his PCP for transaminitis. #Transaminitis Complaints of fatigue/myalgias since ~ June 2024 No clear etiology, may be autoimmune in nature. Possible Hemochromatosis given iron overload. CBC w/ stable H&H, plt 180, INR 1.1. LFTs w/ TB 2.2, DB 1, AST/ALT 1532/1968, AP 240 CK 628, elevated iron @ 196, transferrin sat 76%, ferritin > 7500 EBV IgG + but IgM negative - less likely EBV infection, mono negative, CMV pending Hep C negative, Hep B/A pending Autoimmune work up including ART, AMA, and Actin ab pending. Hemochromatosis pending. RUQ US -> hepatic steatosis/hepatomegaly Triple Phase CT of Liver -> concern early cirrhosis, hepatic steatosis, no lesions/granulomas identified. GI consulted - > recommending trending, may be viral in nature Discontinue Iron supplement, likely contributing to elevated iron levels. Monitor PT/INR & Plt overnight to ensure stability prior to discharge. Will plan to check LFTs as well. Patient to follow up w/ a oracle application consultant upon discharge. - patient/ report they are researching who they would like to see and will get a referral via PCP. Recommend follow up next week w/ PCP. Repeat labs 10/18 outpatient. Educated on symptoms to return back to ED. 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 No infectious symptoms to include fever/chills, or drainage from area. - CBC without leukocytosis, stable H&H - Hemodynamically stable, no indications of sepsis - Keflex started by PCP as outpatient- continue on discharge. Chronic conditions: GERD- W/ chronic cough, EGD scheduled by PCP; Omeprazole Hypothyroidism- ? sacroid related; TSH 2.419; Levothyroxine HLD- Rosuvastatin- HELD at admission DI- Na 132; Desmopressin HTN- Amlodipine Updated at bedside 10/15. Admission HPI Per Admitting Provider 69-year-old male PMHx OA, subclinical hypothyroidism, HTN, ED, diabetes insipidus, GERD, hypercholesterolemia, and sarcoidosis presenting to ED after being referred by his PCP for transaminitis. States that he was evaluated by his PCP on the day of arrival around 1130 to discuss the recent injury he had to his left hand at the fourth knuckle. He was placed on Keflex at that time, and states his pain is very minimal and he is having normal ROM. Labs were drawn at that time and around 1500 his PCP called him stating to go to the ED for evaluation of abnormal liver enzymes. Additionally, he was concerned because since June 2024 he is healthy has had worsening fatigue and myalgias. This is not necessarily limiting his day-to-day activity, but it has been progressing and that concerned him. 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 He does report food poisoning from 2 9 muscles as well as eating raw oysters while in [place] earlier in the year. He did have COVID in July 2024. Patient states that he is not having any abdominal pain, N/V/D/C, fever/chills, or infectious symptoms. Reports that he does drink maybe 3-4 times a week, having 1 beverage per sitting/day. Also admits to using some Tylenol, normally 1 OTC pill every other day for body aches or arthritic pain. Patient has not been ill recently, just feels as though his fatigue and myalgias has been worsening. Denying chest pain, shortness of breath, palpitations, abdominal pain, N/V/D/C, numbness/tingling, LUTS, fever/chills, URI symptoms, or syncope. Has not noticed jaundice discoloration to skin, this is supported by his . ED evaluation reveals no leukocytosis, stable H&H; normal PT/INR; CMP sodium 132, normal renal function, ratio 23.4; lipase 43; total bilirubin 2.2, direct 1, AST 1695, ALT 2134, alkaline phosphatase 271; TSH 2.419; CK 572; UA without infection or presence of bilirubin/urobilinogen, acetaminophen level < 3; hepatitis panel pending; EBV pending, CMV pending; GB US with hepatic steatosis and hepatomegaly as well as contracted gallbladder. Please see Dr. Rubi's attestation for adjustments/additions to treatment plan. Discharge Exam Constitutional WD/WN, vitals as above Eyes PERRL, conjunctivae normal, anicteric sclerae Respiratory breathing unlabored Cardiovascular well perfused Psychiatric A+Ox3, euthymic affect Discharge Plan Discharge Items Patient Disposition: Home - Self-Care Reason For Visit: TRANSAMINITIS Discharge Diagnosis: Transaminitis Activity: Resume your previous activity Non-emergency contact: Primary Care Provider and Contract Attorney Call non-emergency contact if: you have any medication questions and your symptoms worsen Follow-up/Referrals: Belen Martines MD [Primary Care Provider] - 10/20/24 3:00 pm Diet: Regular Ambulatory Orders: Bilirubin Direct (Routine) Timeframe: 20241018 Location: Determined by Patient Ordered By: Monet Ramey Complete Blood Count no Diff (Timed) Timeframe: 20241018 Location: Determined by Patient Ordered By: Monet Ramey Comprehensive Metabolic Panel (Routine) Timeframe: 20241018 Location: Determined by Patient Ordered By: Monet Ramey Prothrombin Time INR (Timed) Timeframe: 20241018 Location: Determined by Patient Ordered By: Monet Ramey Addtl Attending Provider Instructions: Mr. Sevilla, You were recently admitted to the hospital for elevated liver enzymes. You underwent a liver work up that is pending. Please see recommendations below regarding your discharge. Please obtain labs on 10/18. Please follow up with your PCP next week. Please follow up with a gastroenterology office that specializes in hepatology on an outpatient basis. Options include [facility] [place], [facility] [place], [facility], or [facility]. Please obtain from alcohol. Please stop your iron supplementation as you have elevated iron levels. If you develop any worsening symptoms including yellowing of skin/whites of eyes, acute confusion, chest pain, shortness of breath please report back to the ER for further care. Sincerely, Monet Ramey PA-C Pending Studies at Discharge: Yes Studies:: intrinsic liver workup Stand-Alone Forms: [facility] [employer], Smoking Cessation Medications and DC Order Prescriptions: Continued amlodipine 2.5 mg tablet 2.5 mg PO QAM Qty: 90 3RF rosuvastatin 10 mg tablet 10 mg PO QAM Qty: 90 3RF multivitamin [Daily Multi-Vitamin] tablet 1 tab PO QAM cephalexin 500 mg capsule 500 mg PO QID 7 Days Qty: 28 0RF Rx Instructions: Start Date 10/13/24 x7 day supply fluticasone propionate [Flonase Allergy Relief] 50 mcg/actuation spray,suspension 1 spray intranasal BID Qty: 16 2RF Rx Instructions: administer into each nostril omeprazole 20 mg capsule,delayed release(DR/EC) 20 mg PO QAM Qty: 90 3RF desmopressin 0.2 mg tablet 0.2 mg PO TID Qty: 270 3RF Rx Instructions: 1 tab in AM / 0.5 tab in midday / 1 tab in PM levothyroxine 88 mcg tablet 88 mcg PO QAM Qty: 90 3RF Discontinued ferrous sulfate [Feosol] 325 mg (65 mg iron) tablet 325 mg PO QAM Discharge Orders: Discharge Order (Routine); Ordered 10/15/24 Ordered By: Monet Ramey Admission Data Admit Date/Time: 10/13/24 19:36 Attending Provider: Tracee Jacobs Admit Provider: Bebo Rubi Primary Care Provider: Belen Martines Other Providers: Bebo Rubi; Mony Archer Jr Other Interventions: Discharge Summary Assessment (RN) Last Done: 10/15/24 10:18 Hospital Stay Data Consultations 10/13/24 19:10 ED Decision to Admit Stat 10/13/24 21:24 Consult Gastroenterology Routine Diagnostic Imagining Performed 10/13/24 16:32 US gallbladder Stat 10/14/24 10:42 CT liver wo/w con Urgent Pending Results Patient Have Any Pending Studies at Discharge: Yes Discharge Instructions Given to Patient (Per Discharging Provider) Mr. Sevilla, You were recently admitted to the hospital for elevated liver enzymes. You underwent a liver work up that is pending. Please see recommendations below regarding your discharge. Please obtain labs on 10/18. Please follow up with your PCP next week. Please follow up with a gastroenterology office that specializes in hepatology on an outpatient basis. Options include [facility] [place], [facility] [place], [facility], or [facility]. Please obtain from alcohol. Please stop your iron supplementation as you have elevated iron levels. If you develop any worsening symptoms including yellowing of skin/whites of eyes, acute confusion, chest pain, shortness of breath please report back to the ER for further care. Sincerely, Monet Ramey PA-C Total Time Total Time Spent Total Time Spent (In Minutes): 45 Total Time Includes: Examination of the Patient, Discharge Planning and Medication Reconciliation Coding Level of Care Code 50823 INP/OBS DISCH >30 MIN Diagnoses Transaminitis R74.01 Cut of left hand S61.412A
[2024-10-15 14:38] LABS: Hepatitis A Antibody IgM NON-REACTIVE (NON-REACTIVE); Hepatitis B Core Antibody IgM NON-REACTIVE (NON-REACTIVE)
[2024-10-17 15:42] LABS: CMV IgG Antibody <0.60 U/mL; CMV IgM Antibody <30.00 AU/mL
[2024-10-18 23:42] LABS: Anti Mitochondrial Antibody NEGATIVE (NEGATIVE); Anti Nuclear Antibody Screen NEGATIVE (NEGATIVE)
== END 2024-10-15 10:39 | disposition home or self-care (01) ==
LOC: 3N 15:54 → ED 15:54 → SUATTDRO 19:36 → 3N 21:09

== ENCOUNTER 2025-02-22 07:35 | Observation (INO) ==
--- NOTE | 2025-02-22 07:51 | Emergency Department Note ---
Impression & Plan COVID, Acute hyponatremia, Cough, Congestion of upper airway ED Provider Note CHIEF COMPLAINT: "Feels off", off balance, brain fog, cough, congestion HISTORY OF PRESENTING ILLNESS: Patient is a 70-year-old male presents to the emergency department today for complaints of feeling off, off balance, brain fog, cough, and congestion. He states he made a doctor's appointment for this morning that he was driving to with his when he had an episode where he "fell asleep and was choking on his tongue". The states she attempted to wake him up but it was more difficult than normal. Instead of going to his appointment she driven directly to the ER. He does report a nonproductive cough and congestion that all started on Thursday. Yesterday he did develop some nausea and dry heaving but no vomiting. He has also had chills but unknown fevers. He denies any falls, trauma, injury to the head. However does report a headache to the posterior head for the past 2 days. He denies chest pain, sob, breathing difficulties, abdominal pain, blood in stool or urine, any recent illness, or any recent travel. REVIEW OF SYSTEMS: See HPI for pertinent positives and pertinent negatives. ALLERGIES: See below MEDICATIONS: See below PAST MEDICAL HISTORY: See below PHYSICAL EXAM: Vital Signs: Vitals are noted on the nurse's note and reviewed by myself. GENERAL: Non toxic in appearance and in no acute distress. SKIN: Capillary reflex less than 2 seconds. HEAD: Normocephalic, atraumatic. EARS: Bilateral external auditory canals clear without tragus tenderness. Bilateral tympanic membranes pearly montero without erythema or effusion. No mastoid tenderness bilaterally. EYES: Pupils equal round and reactive to light and accommodation. Conjunctivae without injection, sclerae without icterus. Extraocular movements intact. NOSE: Patent, turbinates mildly inflamed with minor clear discharge. No sinus tenderness. MOUTH: Mucous membranes moist. Airway patent, uvula midline. Pharynx is not erythematous and not edematous with no exudate. Pharynx has postnasal drip. No evidence for peritonsillar abscess. NECK: Supple without nuchal rigidity. HEART: Regular rate and rhythm without murmurs gallops or rubs. LUNGS: Clear to auscultation bilaterally without wheezes, rales or rhonchi. No accessory muscle use or retractions. ABDOMEN: Positive bowel sounds x 4. Normal tympanic percussion. Soft, nontender to palpation. No masses or hepatosplenomegaly. No guarding, rigidity, or rebound tenderness. No CVA tenderness. No focal RLQ or LLQ tenderness. NEURO: Patient was alert and oriented. NIH-0.No neurological deficits. DIFFERENTIAL DIAGNOSIS: Viral URI, viral infection, bacterial infection, sinusitis, pneumonia, bronchitis, among others. ED COURSE AND MEDICAL DECISION MAKING: HISTORY FROM INDEPENDENT HISTORIAN: History was provided by the patient and his who is a secondary historian at the bedside. MONITOR: Continuous radiation monitor: Order was placed for continuous radiation monitor. Patient was placed on the radiation monitor and continuous pulse ox. Patient was noted to be in normal sinus rhythm at an initial rate of 62 bpm per my interpretation. EKG: EKG was interpreted by myself as normal sinus rhythm at a rate of 61 bpm. INTERPRETATION OF LABS: I interpreted the labs with full lab results as below in the lab section of this note. Laboratory results pertinent to the emergent complaint are discussed in the MDM section below. The patient was advised to follow up with their PCP and/or specialist(s) for further outpatient monitoring and management of any abnormal results. INTERPRETATION OF IMAGING: Imaging studies were interpreted by myself and read by radiology as per the imaging section of this note. The patient was advised to follow up with their PCP and/or specialist(s) for further outpatient management of any non-emergent abnormal findings. CHRONIC MEDICAL/SOCIAL CONDITIONS AFFECTING CARE: No social concerns were identified as barriers to patients care. EXTERNAL RECORDS REVIEWED: Patient's previous lab work was reviewed for comparison of abnormal results today. I also reviewed the patient's previous primary care visit from 01/04/2025 related to some orthopedic complaints and headaches. Was able to obtain an accurate history and medication list. ESCALATION OF CARE CONSIDERED: I considered admission on this patient due to a sodium level of 126. CONSULTATIONS: I had a meaningful discussion about this patient with Dr. Lou who agrees with my assessment and the treatment plan. I also consulted with the hospitalist Dr. Wiggins for admission. SUMMARY: I examined the patient for complaints of cough, congestion, body aches, feeling off and off balance. A physical exam and history were performed. Nursing notes, EMR, and medication list were personally reviewed. CBC did show a white blood cell count of 3.07 and a red blood cell count of 0.51. There was no thrombocytopenia or anemia. CMP did show a low sodium level of 126, chloride of 94. No other emergent findings present. Urinalysis did not show any infection or blood. Bio fire was positive for COVID. Contact precautions were initiated at this time. Chest ray did not show any acute findings. The head and neck CTA were unremarkable. Patient's symptoms are likely due to the positive COVID swab as well as the low sodium. The patient declined any pain medication here in the emergency department today. He was given 1 L normal saline and 4 mg of Zofran IV with improvement in nausea. I did consult with Dr. Wiggins for admission to the hospital and he was accepted. I did discuss all the above findings with the patient and his who verbalized understanding. Care was transferred at this time. DIAGNOSIS: COVID-19, hyponatremia, nausea, headache TREATMENT PLAN/DISCHARGE INSTRUCTIONS: Admit to hospitalist services. Past Med/Surg History Problem List (Updated 02/22/25 @ 13:29 by COY Rockwell) Congestion of upper airway (Acute) Cough (Acute) Acute hyponatremia (Acute) COVID (Acute) Body aches COVID-19 virus infection Regurgitation of stomach contents Early cirrhosis Acute hepatitis Cut of left hand (Acute) Transaminitis (Acute) Osteoarthritis At risk for cardiovascular event Subclinical hypothyroidism no current medications currently. Primary hypertension Cystic meniscus, other lateral meniscus, unspecified knee Paresthesia of both hands Erectile dysfunction Chronic constipation (Acute) Diabetes insipidus (Chronic) follows with PCP. Gastroesophageal reflux disease (Acute) Hypercholesterolemia (Acute) Sarcoidosis (Acute) Medical History Hx of acute hepatitis per PCP note: "[place] hepatology visit 11/04 - Found to be most likely drug-induced liver injury from NSAIDs with Tylenol while having COVID illness prior. Improvement in liver tests consistent with this type of injury. Chronic liver disease has been ruled out." Subclinical hypothyroidism hx Hx of osteoarthritis Hx of hypercholesterolemia Hx of gastroesophageal reflux (GERD) Early cirrhosis hx Hx of sarcoidosis dx 1976, taken off of chronic steroids fall 2022 Chronic constipation hx "has gotten better" Prediabetes hx, "unsure if he's still in this category or not" Obesity (BMI 30.0-34.9) Colon polyps Chronic steroid use hx to manage patient's sarcoidosis, took patient off the steroid in the Fall 2022. History of COVID-19 Spring 2021: moderate flu like symptoms. no current issues. Hx of temporomandibular joint disorder clicks sometimes - never locked History of lumbar puncture Surgical History History of colonoscopy S/P meniscectomy L knee Family History Mother Liver cancer Other No family history of adverse response to anesthesia No family history of bleeding disorder Denies family history of Ovarian cancer Prostate cancer Myocardial infarction Breast cancer Colorectal cancer Social History Smoking Status: Never smoker Tobacco Type: Smokeless Tobacco (Dip or Chew) Second Hand Exposure: No; Do You Dip or Chew Tobacco: No; Hx Alcohol Use: Yes Alcohol type: beer Alcohol Intake Frequency Comment: "light to moderate" 1-2 drinks per day Hx Substance Use: No Preferred Language: Vietnamese Communication Ability: Effective Visual Impairment: No Limitations Hearing Ability: Normal Optical Lab Technician Required: No Beliefs That Will Affect Care: None marital status: Current Living Situation: Spouse current occupational status: retired current occupation: self employed Feels Safe at Home: Yes Childhood Exposure to Second-Hand Smoke: Yes Dental Care, Regularly: Yes Physical Activity Frequency: 3-4 Times per Week Seatbelt Use: always Sunscreen Use: Yes Assistive Devices: Contacts and Hearing Aid - Bilateral Allergies Allergies Allergy/AdvReac Type Severity Reaction Status Date / Time No Known Drug Allergies Allergy Verified 01/04/25 14:31 Home Meds Home Medications Medication Instructions Recorded Confirmed multivitamin (Daily Multi-Vitamin 1 tab PO QAM 06/14/19 02/22/25 tablet) cholecalciferol (vitamin D3) 25 25 mcg PO QAM 12/15/24 02/22/25 mcg (1,000 unit) capsule rosuvastatin 5 mg tablet 5 mg PO QAM 12/21/24 02/22/25 desmopressin 0.2 mg tablet 0.2 mg PO UD 02/22/25 02/22/25 fluticasone propionate 50 0 spray intranasal BID 02/22/25 02/22/25 mcg/actuation nasal spray,suspension (Flonase Allergy Relief) methocarbamol 500 mg tablet 0 mg PO TID 02/22/25 02/22/25 Previous Rx's Medication Instructions Recorded amlodipine 2.5 mg tablet 2.5 mg PO QAM #90 tabs 03/03/24 levothyroxine 88 mcg tablet 88 mcg PO QAM #90 tabs 06/13/24 omeprazole 20 mg capsule,delayed 20 mg PO QAM #90 caps 06/13/24 release Results & Data (ED) Vital Signs Vital Signs - 24 hr 02/22/25 07:43 02/22/25 08:07 02/22/25 09:49 Temperature 36.8 C Temperature Source Skin Pulse Rate 63 59 L Pulse Rate [Apical] 62 Pulse Strength [Apical] Normal Respiratory Rate 18 18 Respiratory Effort / Characteristics Non-Labored Spontaneous Respiratory Depth Normal Respiratory Pattern Regular Blood Pressure 123/72 Blood Pressure [Left Arm] 130/71 Blood Pressure Mean 89 Blood Pressure Mean [Left Arm] 90 Pulse Oximetry 97 98 Oxygen Delivery Method Room Air Room Air Sepsis Recent Fever Within 48 Hours No Sepsis New/Unexplained Change in Mental Status No Sepsis Action Taken by Nursing No Action Required 02/22/25 09:55 Temperature 37 C Temperature Source Oral Pulse Rate Pulse Rate [Apical] 67 Pulse Strength [Apical] Normal Respiratory Rate 18 Respiratory Effort / Characteristics Non-Labored Spontaneous Respiratory Depth Normal Respiratory Pattern Regular Blood Pressure Blood Pressure [Left Arm] 136/74 Blood Pressure Mean Blood Pressure Mean [Left Arm] 94 Pulse Oximetry 99 Oxygen Delivery Method Room Air Sepsis Recent Fever Within 48 Hours Sepsis New/Unexplained Change in Mental Status Sepsis Action Taken by Nursing Laboratory Data 02/22/25 08:00 02/22/25 10:28 Lab Results 02/22/25 02/22/25 Range/Units 08:00 08:06 WBC 3.07 L (4.8-10.8) K/ul RBC 4.51 L (4.70-6.10) M/uL Hgb 14.6 (14.0-18.0) g/dl Hct 39.3 L (42.0-52.0) % MCV 87.1 (80.0-100.0) fL MCH 32.4 (25.0-34.0) pg MCHC 37.2 H (32.0-36.0) g/dL RDW Std Deviation 38.3 (36.4-46.3) fL RDW Coeff of Kathya 11.9 (11.5-14.5) % Plt Count 149 (130-400) K/uL MPV 9.1 L (9.4-12.4) fL Immature Gran % (Auto) 0.3 % Neut % (Auto) 44.2 % Lymph % (Auto) 26.1 % Florence % (Auto) 26.7 % Eos % (Auto) 2.0 % Baso % (Auto) 0.7 % Neut # (Auto) 1.36 L (1.40-6.50) K/uL Lymph # (Auto) 0.80 L (1.20-3.40) K/uL Florence # (Auto) 0.82 H (0.11-0.59) K/uL Eos # (Auto) 0.06 (0.00-0.50) K/uL Baso # (Auto) 0.02 (0.00-0.20) K/uL Immature Gran # (Auto) 0.01 (0.01-0.20) K/uL Sodium 126 L (136-145) mmol/L Potassium 4.1 (3.5-5.1) mmol/L Chloride 94 L (98-107) mmol/L Carbon Dioxide 24 (21-32) mmol/L Anion Gap 8 (3-11) BUN 14 (6-23) mg/dl Creatinine 0.67 (0.6-1.4) mg/dl Est Cr Clr Drug Dosing 125.0 ml/min eGFR 100.44 BUN/Creatinine Ratio 20.9 H (10-20) Glucose 105 H (70-99(Fasting)) mg/dl Calcium 8.3 L (8.6-10.3) mg/dl Total Bilirubin 0.8 (0.2-1.0) mg/dl AST 32 (13-39) U/L ALT 26 (7-52) U/L Alkaline Phosphatase 82 (34-104) U/L Troponin I High Sens 5.3 (0-20) pg/ml Total Protein 6.6 (6.0-8.3) gm/dl Albumin 4.1 (3.4-5.0) gm/dl Globulin 2.5 (2.5-4.0) gm/dl Albumin/Globulin Ratio 1.6 (0.9-2) Adenovirus (PCR) Not Detected (NotDetected) Anaplasma Smear See Comment Babesia Smear See Comment B. pertussis DNA (PCR) Not Detected (NotDetected) B.parapertussis DNA PCR Not Detected (NotDetected) Lyme Disease Screen Negative (Negative) C. pneumoniae DNA (PCR) Not Detected (NotDetected) Coronavirus OC43 (PCR) Not Detected (NotDetected) Coronavirus HKU1 (PCR) Not Detected (NotDetected) Coronavirus 229E (PCR) Not Detected (NotDetected) SARS-CoV-2 (PCR) DETECTED A (NotDetected) Coronavirus NL63 (PCR) Not Detected (NotDetected) Human Metapneumovir PCR Not Detected (NotDetected) Influenza Type A (PCR) Not Detected (NotDetected) Influenza Type B (PCR) Not Detected (NotDetected) M. pneumoniae (PCR) Not Detected (NotDetected) Parainfluenza 1 (PCR) Not Detected (NotDetected) Parainfluenza 2 (PCR) Not Detected (NotDetected) Parainfluenza 3 (PCR) Not Detected (NotDetected) Parainfluenza 4 (PCR) Not Detected (NotDetected) RSV (PCR) Not Detected (NotDetected) Entero/Rhino (PCR) Not Detected (NotDetected) Administered Medications Lidocaine (Lidocaine 4% Cream 15 Gm Tube) 1 appln EXT DAILY LIZY Stop: 03/24/25 11:44 Last Admin: 02/22/25 11:57 Dose: 1 appln Documented By: [facility] [place] Vitamin D (Cholecalciferol 25 Mcg (1000 Units) Tab) 25 mcg PO QAM LIZY Stop: 03/24/25 11:44 Last Admin: 02/22/25 11:56 Dose: 25 mcg Documented By: JEROME Discontinued Medications Sodium Chloride (Nss) 1,000 mls @ 999 mls/hr IV .Q1H1M ONE Stop: 02/22/25 09:00 Last Infusion: 02/22/25 09:15 Dose: Infused Documented By: Admin: 02/22/25 08:13 Dose: 999 mls/hr Documented By: MARYLU Ioversol (Optiray 320 125ml) 112 ml IV ONCE ONE Stop: 02/22/25 08:35 Last Admin: 02/22/25 08:34 Dose: 112 ml Documented By: GINA Ondansetron HCl (Ondansetron Inj 2 Mg/Ml 2 Ml Vial) 4 mg IV NOW STA Stop: 02/22/25 08:04 Last Admin: 02/22/25 08:13 Dose: 4 mg Documented By: MARYLU Imaging Data Radiologist's Impression: Chest X-Ray 02/22/25 08:00 XR chest 1V portable CLINICAL HISTORY: illness, cough COMPARISON STUDY: 01/04/2025 FINDINGS: Stable mild cardiomegaly without pulmonary vascular congestion. No consolidation or pleural effusion. No pneumothorax. IMPRESSION: No acute findings. ACT 112: Negative or not required by law. Electronically signed by: Nish Lozano M.D. 02/22/2025 8:22 AM Head CTA 02/22/25 08:00 CT angio head wo/w CLINICAL HISTORY: 70 years-old Male with stroke like symptoms. Acute strokelike symptoms COMPARISON STUDY: CTA neck of same day TECHNIQUE: Unenhanced axial CT scan of the brain is performed. Subsequently, following the IV administration of 112 cc of Optiray, CT angiogram of the brain was performed from the skull base to the vertex. Images are reviewed in the axial, sagittal, and coronal planes. 3-D MIPS images are created and assessed. IV contrast was administered without complication. All measurements were obtained according to NASCET criteria. A dose lowering technique was utilized adhering to the principles of ALARA. CT DOSE: 1217.79 mGy.cm FINDINGS: CT BRAIN: There is no acute intracranial hemorrhage, midline shift, hydrocephalus, intracranial mass, territorial ischemia or abnormal extra-axial collections. No abnormal intra-axial or extra-axial enhancement. Mild involutional changes. Mastoid air cells and middle ear cavities are clear. No calvarial fracture. Minimal mucosal thickening of the left maxillary sinus with small polyp. CT ANGIOGRAM OF THE BRAIN: The imaged bilateral internal carotid arteries are patent. The bilateral anterior and middle cerebral arteries are also patent. The vertebrobasilar system and posterior cerebral arteries are widely patent. Dominant left vertebral artery. The diminutive V4 segment of the right vertebral artery bifurcates and mostly terminates into the right PICA. origin of the left posterior cerebral artery. There is no aneurysm, high-grade stenosis, or proximal branch occlusion identified. Dural sinuses appear patent. IMPRESSION: 1. No acute intracranial abnormality. 2. Unremarkable CTA of the head. ACT 112: Negative or not required by law. The above report was generated using voice recognition software. It may contain grammatical, syntax or spelling errors. Electronically signed by: Andrei Lovett M.D. 02/22/2025 9:10 AM Neck CTA 02/22/25 08:00 CT ANGIOGRAPHY OF THE NECK WITH CONTRAST CLINICAL HISTORY: stroke like symptoms COMPARISON STUDY: No previous studies for comparison. Technique: CT angiography of the carotid and vertebral arteries was obtained using Optiray and 3D reconstruction on an independent workstation. NASCET criteria was utilized. Automated exposure control was utilized for the study. A dose lowering technique was utilized adhering to the principles of ALARA. CT DOSE: Findings: There are moderate multilevel degenerative changes within the cervical spine. There are mild atheromatous changes in the left brachiocephalic artery. There is mild dilatation of the left internal carotid artery origin with moderate plaque. There is no evidence of hemodynamically significant stenosis. There is no evidence of dissection. There is no evidence of right internal carotid artery aneurysm or dissection. There is no evidence of left vertebral artery stenosis or dissection. The distal segment of the right vertebral artery appears diminutive. IMPRESSION: 1. No evidence of hemodynamically significant carotid artery stenosis or dissection. 2. No evidence of left vertebral artery stenosis or dissection 3. Diminutive distal right vertebral artery, possibly on a developmental basis ACT 112: Negative or not required by law. Electronically signed by: Rj House M.D. 02/22/2025 9:11 AM Discharge Plan Visit Data Chief Complaint: Illness Stated Complaint: FEELS WEAK/OFF BALANCE/BRAIN FOG ED Provider: Johnny Lou ED Midlevel Provider: Sugey Moran Discharge Problem: COVID, Acute hyponatremia, Cough, Congestion of upper airway Patient Disposition: Admitted As Inpatient Condition: Good Discharge Instructions Interventions: ED Discharge Assessment Last Done: 02/22/25 12:36 Discharge Problem: Cough Qualifiers: Cough type: acute Qualified Code(s): R05.1 - Acute cough
[2025-02-22] MEDS: SODIUM CHLORIDE 0.9% 1,000 ML IV ONE (08:13)
[2025-02-22] MEDS: ONDANSETRON INJ 2 MG/ML 2 ML VIAL IV STA (08:13)
[2025-02-22 08:21] LABS: Hematocrit (blood only) 39.3 % (42.0-52.0); Hemoglobin 14.6 g/dl (14.0-18.0); Immature Granulocytes # (auto) 0.01 K/uL (0.01-0.20); Immature Granulocytes % (auto) 0.3 %; Mean Corpuscular Hemoglobin 32.4 pg (25.0-34.0); Mean Corpuscular Volume 87.1 fL (80.0-100.0); Platelet Count 149 K/uL (130-400); RDW Standard Deviation 38.3 fL (36.4-46.3); Red Blood Count 4.51 M/uL (4.70-6.10); White Blood Count 3.07 K/ul (4.8-10.8)
--- NOTE | 2025-02-22 08:24 | XRay Report ---
XR chest 1V portable CLINICAL HISTORY: illness, cough COMPARISON STUDY: 01/04/2025 FINDINGS: Stable mild cardiomegaly without pulmonary vascular congestion. No consolidation or pleural effusion. No pneumothorax. IMPRESSION: No acute findings. ACT 112: Negative or not required by law. Electronically signed by: Nish Lozano M.D. 02/22/2025 8:22 AM
[2025-02-22] MEDS: OPTIRAY 320 125ml IV ONE (08:34)
[2025-02-22 08:41] LABS: Alanine Aminotransferase 26.0 U/L (7-52); Albumin Globulin Ratio 1.6 (0.9-2); Alkaline Phosphatase 82.0 U/L (34-104); Anion Gap 8.0 (3-11); Bilirubin,Total 0.8 mg/dl (0.2-1.0); Blood Urea Nitrogen 14.0 mg/dl (6-23); Calcium 8.3 mg/dl (8.6-10.3); Carbon Dioxide 24.0 mmol/L (21-32); Chloride 94.0 mmol/L (98-107); Creatinine Clr Calc Pharmacy 125.0 ml/min; Globulin 2.5 gm/dl (2.5-4.0); Glucose 105.0 mg/dl (70-99(Fasting)); Potassium 4.1 mmol/L (3.5-5.1); Sodium 126.0 mmol/L (136-145); Total Protein 6.6 gm/dl (6.0-8.3)
[2025-02-22 09:09] LABS: Appearance Urine Clear (Clear); Glucose Urine UA Negative (Negative)
--- NOTE | 2025-02-22 09:12 | CT Scan Report ---
CT angio head wo/w CLINICAL HISTORY: 70 years-old Male with stroke like symptoms. Acute strokelike symptoms COMPARISON STUDY: CTA neck of same day TECHNIQUE: Unenhanced axial CT scan of the brain is performed. Subsequently, following the IV adminis tration of 112 cc of Optiray, CT angiogram of the brain was performed from the skull base to the vert ex. Images are reviewed in the axial, sagittal, and coronal planes. 3-D MIPS images are created and a ssessed. IV contrast was administered without complication. All measurements were obtained according to NASCET criteria. A dose lowering technique was utilized adhering to the principles of ALARA. CT DOSE: 1217.79 mGy.cm FINDINGS: CT BRAIN: There is no acute intracranial hemorrhage, midline shift, hydrocephalus, intracranial mass, territori al ischemia or abnormal extra-axial collections. No abnormal intra-axial or extra-axial enhancement. Mild involutional changes. Mastoid air cells and middle ear cavities are clear. No calvarial fractur e. Minimal mucosal thickening of the left maxillary sinus with small polyp. CT ANGIOGRAM OF THE BRAIN: The imaged bilateral internal carotid arteries are patent. The bilateral anterior and middle cerebral arteries are also patent. The vertebrobasilar system and posterior cerebral arteries are widely jeffries nt. Dominant left vertebral artery. The diminutive V4 segment of the right vertebral artery bifurcate s and mostly terminates into the right PICA. origin of the left posterior cerebral artery. Ther e is no aneurysm, high-grade stenosis, or proximal branch occlusion identified. Dural sinuses appear patent. IMPRESSION: 1. No acute intracranial abnormality. 2. Unremarkable CTA of the head. ACT 112: Negative or not required by law. The above report was generated using voice recognition software. It may contain grammatical, syntax o r spelling errors. Electronically signed by: Andrei Lovett M.D. 02/22/2025 9:10 AM
--- NOTE | 2025-02-22 09:12 | CT Scan Report ---
CT ANGIOGRAPHY OF THE NECK WITH CONTRAST CLINICAL HISTORY: stroke like symptoms COMPARISON STUDY: No previous studies for comparison. Technique: CT angiography of the carotid and vertebral arteries was obtained using Optiray and 3D rec onstruction on an independent workstation. NASCET criteria was utilized. Automated exposure control was utilized for the study. A dose lowering technique was utilized adhering to the principles of ALA RA. CT DOSE: Findings: There are moderate multilevel degenerative changes within the cervical spine. There are mild atheromatous changes in the left brachiocephalic artery. There is mild dilatation of the left internal carotid artery origin with moderate plaque. There is no evidence of hemodynamically significant stenosis. There is no evidence of dissection. There is no evidence of right internal carotid artery aneurysm or dissection. There is no evidence of left vertebral artery stenosis or dissection. The distal segment of the right vertebral artery appears diminutive. IMPRESSION: 1. No evidence of hemodynamically significant carotid artery stenosis or dissection. 2. No evidence of left vertebral artery stenosis or dissection 3. Diminutive distal right vertebral artery, possibly on a developmental basis ACT 112: Negative or not required by law. Electronically signed by: Rj House M.D. 02/22/2025 9:11 AM
[2025-02-22 09:13] LABS: Chlamydia pneumoniae PCR Not Detected (NotDetected); Coronavirus 229E PCR Not Detected (NotDetected); Coronavirus CoV-2 (COVID19)PCR DETECTED (NotDetected); Coronavirus HKU1 PCR Not Detected (NotDetected); Coronavirus NL63 PCR Not Detected (NotDetected); Coronavirus OC43PCR Not Detected (NotDetected); Human Metapneumovirus PCR Not Detected (NotDetected); Parainfluenza Virus 1 PCR Not Detected (NotDetected); Parainfluenza Virus 2 PCR Not Detected (NotDetected); Parainfluenza Virus 3 PCR Not Detected (NotDetected); Parainfluenza Virus 4 PCR Not Detected (NotDetected); Respiratory Syncytial VirusPCR Not Detected (NotDetected); Rhinovirus/Enterovirus PCR Not Detected (NotDetected)
--- NOTE | 2025-02-22 10:17 | History & Physical Report ---
Date of Service February 22, 2025 Assessment & Plan (1) COVID-19 virus infection: Plan: Minh Sevilla is a 70 yo male with PMH of sacroidosis, diabetes insidipous, transaminitis (from NSAID and tyenolol), hypothyroidism. since 4-5 days ago, he's been having fatigue, diffuse body ache, anorexia. on 02/22, came to ur ED for evaluation. he's been having headache and was following with PT for cervical disc headche. his CTA head and neck negative for bleeding of large vessel thrombosis. however, he's wsa found to has covid infection and also noted to has hyponatrema with sodium of 125. (baseline of 134) 1. acute hyponatremia 2. covid 3. diffuse body ache. 4. hx of DI on desmopressin 5. hypothyroidism 6. GERD 7. hypertension 8. sacroidosis 9. fatty liver 10. hx of transaminits from NSAID and acetinophen 1. acute hyponatremia suspect related to anorexia regular diet, ensure supplement c/w home med of desmopressin 0.2mg BID check Na every 8 hours 2. covid infection, he's on room air 3. diffuse body ache. f/u on phosphate and magnesium level duplex US to r/o DVT heparin q8 hours for DVT prophylaxis 4. hypothyroidism-levothyroxine 88mcg 5. GERD, PPI 20mg 6. HLD, crestor 5mg 7. hx of transaminitis was seen at [facility] they are concerned about transaminitis from NSAID and tyenolol use 8. hypertension-amlodipine 2.5mg DVT-heparin subQ (2) Body aches: History of Present Illness Chief Complaint: diffuse body ache, nausea and vomiting hyponatremia covid positive Primary Care Provider: Belen Martines MD Minh Sevilla is a 70 yo male with PMH of diabetes insipidus, sacroidosis, liver cirrhosis, GERD, hiatal hernia, hypothyroidism, colonic polyps. He been having 4-5 days history of diffuse body achy, fatigue, and anorexia and vomiting. he's was having headache and cervical spine disorder and been going to PT for evaluation. for his cirrhosis, he's was following hepatology at [facility], [place] (Dr. Alex Brock) and evaluate him for transaminitis, hepatology was concerned about med induced hepatoxic injury from NSAID and acetominophen and underlying fatty liver. He was recommended to have mediterranean low carb diet on 02/22 (thursday), he's have diffuse body ache, fatigue, and headache. his CT head negative for bleeding and he's was found to has covid infection. noted to has hyponatremia with 126, his baseline is 134. on interview, he denied shortness of breath, denied congestion, or chest pain he's denied any abdominal pain. no diarrhea. Allergies Allergy/AdvReac Type Severity Reaction Status Date / Time No Known Drug Allergies Allergy Verified 01/04/25 14:31 Home Medications Medication Instructions Recorded Confirmed Type multivitamin (Daily Multi-Vitamin 1 tab PO QAM 06/14/19 02/22/25 History tablet) amlodipine 2.5 mg tablet 2.5 mg PO QAM #90 tabs 03/03/24 02/22/25 Rx levothyroxine 88 mcg tablet 88 mcg PO QAM #90 tabs 06/13/24 02/22/25 Rx omeprazole 20 mg capsule,delayed 20 mg PO QAM #90 caps 06/13/24 02/22/25 Rx release cholecalciferol (vitamin D3) 25 25 mcg PO QAM 12/15/24 02/22/25 History mcg (1,000 unit) capsule rosuvastatin 5 mg tablet 5 mg PO QAM 12/21/24 02/22/25 History desmopressin 0.2 mg tablet 0.2 mg PO UD 02/22/25 02/22/25 History fluticasone propionate 50 0 spray intranasal BID 02/22/25 02/22/25 History mcg/actuation nasal spray,suspension (Flonase Allergy Relief) methocarbamol 500 mg tablet 0 mg PO TID 02/22/25 02/22/25 History Past Med/Surg History Problem List (Updated 02/22/25 @ 10:30 by Clayton Wiggins DO) Body aches COVID-19 virus infection Regurgitation of stomach contents Early cirrhosis Acute hepatitis Cut of left hand (Acute) Transaminitis (Acute) Osteoarthritis At risk for cardiovascular event Subclinical hypothyroidism no current medications currently. Primary hypertension Cystic meniscus, other lateral meniscus, unspecified knee Paresthesia of both hands Erectile dysfunction Chronic constipation (Acute) Diabetes insipidus (Chronic) follows with PCP. Gastroesophageal reflux disease (Acute) Hypercholesterolemia (Acute) Sarcoidosis (Acute) Medical History Hx of acute hepatitis Subclinical hypothyroidism Hx of osteoarthritis Hx of hypercholesterolemia Hx of gastroesophageal reflux (GERD) Early cirrhosis Hx of sarcoidosis Chronic constipation Prediabetes Obesity (BMI 30.0-34.9) Colon polyps Chronic steroid use History of COVID-19 Hx of temporomandibular joint disorder History of lumbar puncture Surgical History History of colonoscopy S/P meniscectomy Family History Mother Liver cancer Other No family history of adverse response to anesthesia No family history of bleeding disorder Denies family history of Ovarian cancer Prostate cancer Myocardial infarction Breast cancer Colorectal cancer Social History Smoking Status: Never smoker Tobacco Type: Smokeless Tobacco (Dip or Chew) Second Hand Exposure: No; Do You Dip or Chew Tobacco: No; Hx Alcohol Use: Yes Alcohol type: beer Alcohol Intake Frequency Comment: "light to moderate" 1-2 drinks per day Hx Substance Use: No Preferred Language: Yoruba Communication Ability: Effective Visual Impairment: No Limitations Hearing Ability: Normal Screw Remover Required: No Beliefs That Will Affect Care: None marital status: Current Living Situation: Spouse current occupational status: retired current occupation: self employed Feels Safe at Home: Yes Childhood Exposure to Second-Hand Smoke: Yes Dental Care, Regularly: Yes Physical Activity Frequency: 3-4 Times per Week Seatbelt Use: always Sunscreen Use: Yes Assistive Devices: Contacts and Hearing Aid - Bilateral Review of Systems Review of Systems: Constitutional: + for fatigue + for malaise, diffuse body ache Cardiovascular: No Chest Pain, No SOB, No PND, No Dyspnea on Exertion, No Orthopnea, No Claudication, No Edema, No Palpitations Respiratory: No Cough, No Sputum, No Wheezing, No Smoke Exposure, No Dyspnea Gastrointestinal: + for nausea and vomiting; no abdominal pain, no diarrhea + for hx of transaminitis. Genitourinary: no dysuria Musculoskeletal: + for diffuse body ache. + for neck pain Heme/Lymph: No Bruising, No Bleeding, Endocrine: + for polyuria, + for diabetes insipidus Physical Exam Physical Exam: VITALS: Reviewed. WEIGHT/BMI reviewed. GEN: Healthy appearing, well-developed, NAD. PSYCH: Good Judgment. AAOx3. -Head: NC/AT; -Eyes: PERRL, EOMI. No discharge or redn ess; NECK: Supple, with no masses. CV: RRR, no m/r/g. LUNGS: CTAB, no w/r/c. ABD: Soft, NT/ND, NBS, no masses or organomegaly. no ascites; no bruising appreciated : N/A MSK: No deformities, Normal gait. EXT: No clubbing, cyanosis, or edema. NEURO: Ambulating with no limitations. Normal muscle strength and tone. No focal deficits. Results & Data Results & Data Vital Signs (Past 12 Hours) Vital Signs Temp Pulse Pulse Resp BP BP Pulse Ox 02/22/25 09:55 37 C 67 18 136/74 99 02/22/25 09:49 59 L 02/22/25 08:07 62 18 130/71 98 02/22/25 07:43 36.8 C 63 18 123/72 97 O2 Del Method 02/22/25 09:55 Room Air 02/22/25 09:49 02/22/25 08:07 Room Air 02/22/25 07:43 Room Air Laboratory Results Laboratory Results - last 72 hr 02/22/25 02/22/25 02/22/25 08:00 08:06 Unknown WBC 3.07 L RBC 4.51 L Hgb 14.6 Hct 39.3 L MCV 87.1 MCH 32.4 MCHC 37.2 H RDW Std Deviation 38.3 RDW Coeff of Kathya 11.9 Plt Count 149 MPV 9.1 L Immature Gran % (Auto) 0.3 Neut % (Auto) 44.2 Lymph % (Auto) 26.1 [place] % (Auto) 26.7 Eos % (Auto) 2.0 Baso % (Auto) 0.7 Neut # (Auto) 1.36 L Lymph # (Auto) 0.80 L [place] # (Auto) 0.82 H Eos # (Auto) 0.06 Baso # (Auto) 0.02 Immature Gran # (Auto) 0.01 Sodium 126 L Potassium 4.1 Chloride 94 L Carbon Dioxide 24 Anion Gap 8 BUN 14 Creatinine 0.67 Est Cr Clr Drug Dosing 125.0 eGFR 100.44 BUN/Creatinine Ratio 20.9 H Glucose 105 H Calcium 8.3 L Total Bilirubin 0.8 AST 32 ALT 26 Alkaline Phosphatase 82 Troponin I High Sens 5.3 Total Protein 6.6 Albumin 4.1 Globulin 2.5 Albumin/Globulin Ratio 1.6 Urine Color Yellow Urine Appearance Clear Urine pH 6.5 Ur Specific [place] 1.041 H Urine Protein Negative Urine Glucose (UA) Negative Urine Ketones Trace H Urine Blood Negative Urine Nitrite Negative Urine Bilirubin Negative Urine Urobilinogen Negative Ur Leukocyte Esterase Negative Urine Comment Adenovirus (PCR) Not Detected Anaplasma Smear See Comment Babesia Smear See Comment B. pertussis DNA (PCR) Not Detected B.parapertussis DNA PCR Not Detected Lyme Disease Screen Negative C. pneumoniae DNA (PCR) Not Detected Coronavirus OC43 (PCR) Not Detected Coronavirus HKU1 (PCR) Not Detected Coronavirus 229E (PCR) Not Detected SARS-CoV-2 (PCR) DETECTED A Coronavirus NL63 (PCR) Not Detected Human Metapneumovir PCR Not Detected Influenza Type A (PCR) Not Detected Influenza Type B (PCR) Not Detected M. pneumoniae (PCR) Not Detected Parainfluenza 1 (PCR) Not Detected Parainfluenza 2 (PCR) Not Detected Parainfluenza 3 (PCR) Not Detected Parainfluenza 4 (PCR) Not Detected RSV (PCR) Not Detected Entero/Rhino (PCR) Not Detected Code Status & VTE Plan Code Status Full code VTE Prophylaxis Plan VTE Prophylaxis will be ordered: Yes PG Care Time/CCT Total # of Minutes Spent Total Time Spent with Patient: Total time spent is greater than 50% in coordination of care (as documented) at patient's floor/unit and/or counseling patient: Coding Level of Care Code 01274 INT INP/OBS CARE 40MIN Diagnoses COVID-19 virus infection U07.1 Body aches R52 Time Spent (min) 40
[2025-02-22] MEDS: CHOLECALCIFEROL 25 MCG (1000 UNITS) TAB PO SCH (11:56)
[2025-02-22] MEDS: LIDOCAINE 4% CREAM 15 GM TUBE EXT SCH (11:57)
[2025-02-22 12:02] LABS: Anion Gap 6.0 (3-11); Blood Urea Nitrogen 12.0 mg/dl (6-23); Calcium 8.3 mg/dl (8.6-10.3); Carbon Dioxide 25.0 mmol/L (21-32); Chloride 94.0 mmol/L (98-107); Creatinine Clr Calc Pharmacy 125.0 ml/min; Glucose 100.0 mg/dl (70-99(Fasting)); Potassium 4.5 mmol/L (3.5-5.1); Sodium 125.0 mmol/L (136-145)
--- NOTE | 2025-02-22 13:16 | Electrocardiogram Report ---
Test Reason : Blood Pressure : */* mmHG Vent. Rate : 61 BPM Atrial Rate : 61 BPM P-R Int : 158 ms QRS Dur : 92 ms QT Int : 400 ms P-R-T Axes : 38 10 15 degrees QTcB Int : 402 ms Normal sinus rhythm Normal ECG When compared with ECG of 13-Oct-2024 17:43, No significant change was found Confirmed by Larry Georges ([id number]) on 02/22/2025 1:16:31 PM Referred By: Confirmed By: Larry Georges
[2025-02-22] MEDS: HEPARIN SOD 5,000 UNIT/0.5 ML VIAL SQ SCH (14:26)
[2025-02-22] MEDS: DESMOPRESSIN ACETATE 0.1 MG TAB PO SCH ×2 (16:12→20:04)
[2025-02-22 16:38] LABS: Anion Gap 7.0 (3-11); Blood Urea Nitrogen 14.0 mg/dl (6-23); Calcium 8.2 mg/dl (8.6-10.3); Carbon Dioxide 23.0 mmol/L (21-32); Chloride 94.0 mmol/L (98-107); Creatinine Clr Calc Pharmacy 108.8 ml/min; Glucose 131.0 mg/dl (70-99(Fasting)); Potassium 3.9 mmol/L (3.5-5.1); Sodium 124.0 mmol/L (136-145)
[2025-02-22] MEDS: FLUTICASONE PROPIONATE NA SPR 16 GM BTL SCH (20:03)
[2025-02-22] MEDS: SODIUM CHLORIDE 1 GM TABLET PO SCH (20:04)
[2025-02-22] MEDS ORDERED: DESMOPRESSIN ACETATE 0.1 MG TAB PO SCH (21:00)
[2025-02-22 23:11] LABS: Anion Gap 5.0 (3-11); Blood Urea Nitrogen 15.0 mg/dl (6-23); Calcium 8.5 mg/dl (8.6-10.3); Carbon Dioxide 27.0 mmol/L (21-32); Chloride 97.0 mmol/L (98-107); Creatinine Clr Calc Pharmacy 97.4 ml/min; Glucose 127.0 mg/dl (70-99(Fasting)); Potassium 4.1 mmol/L (3.5-5.1); Sodium 129.0 mmol/L (136-145)
[2025-02-23] MEDS: LEVOTHYROXINE SODIUM 88 MCG TABLET PO SCH (04:31)
[2025-02-23] MEDS: DESMOPRESSIN ACETATE 0.1 MG TAB PO STA (04:55)
[2025-02-23 07:30] LABS: Anion Gap 6.0 (3-11); Blood Urea Nitrogen 13.0 mg/dl (6-23); Calcium 8.4 mg/dl (8.6-10.3); Carbon Dioxide 27.0 mmol/L (21-32); Chloride 97.0 mmol/L (98-107); Creatinine Clr Calc Pharmacy 116.3 ml/min; Glucose 105.0 mg/dl (70-99(Fasting)); Potassium 4.2 mmol/L (3.5-5.1); Sodium 130.0 mmol/L (136-145)
[2025-02-23 07:48] VITALS: O2SAT 98
--- NOTE | 2025-02-23 08:26 | Ultrasound Report ---
EXAM: US venous doppler LE BI CLINICAL HISTORY: leg pain TECHNIQUE: Ultrasound examination of bilateral lower extremity veins was performed in real time and duplex. One or more of the following were performed- spectral analysis, resistive index, waveform analysis, and pulsed Doppler. COMPARISON: None. FINDINGS: Normal phasic, non-pulsatile and spontaneous flow is noted in bilateral common femoral, superficial femoral, popliteal and anterior, posterior tibial and peroneal veins. Visualized veins of both lower extremities demonstrate normal compressibility. No sonographic evidence of acute deep vein thrombosis (DVT) is detected in the visualized veins of both lower extremities. Compression and Augmentation: All evaluated veins compress fully with applied transducer pressure. Augmentation of venous flow is noted with distal compression. Additional Findings: No evidence of intraluminal thrombus. IMPRESSION: No sonographic evidence of acute DVT detected in the bilateral common femoral, superficial femoral, popliteal and posterior tibial and peroneal veins, at the time of examination. Disclaimer: DVT could be missed early in the disease when clot burden is minimal. For patients with moderate and high pretest probability of DVT and negative ultrasound, the [place] [employer] clinical guidelines recommend testing with a D-dimer assay or repeat ultrasound in 5-7 days. If symptoms worsen, the Society of radiologists in ultrasound recommends repeating ultrasound even earlier. Electronically signed by Dinseh Mabry 02-23-2025 07:59 AM
[2025-02-23] MEDS: ROSUVASTATIN CALCIUM 5 MG TAB PO SCH (09:05)
[2025-02-23] MEDS: MULTIVITAMIN TAB PO SCH (09:05)
[2025-02-23 11:39] VITALS: BP 124/71; RESP 19; TEMP 98.1
[2025-02-23 14:34] LABS: Anion Gap 7.0 (3-11); Blood Urea Nitrogen 16.0 mg/dl (6-23); Calcium 8.6 mg/dl (8.6-10.3); Carbon Dioxide 27.0 mmol/L (21-32); Chloride 98.0 mmol/L (98-107); Creatinine Clr Calc Pharmacy 110.2 ml/min; Glucose 94.0 mg/dl (70-99(Fasting)); Potassium 4.1 mmol/L (3.5-5.1); Sodium 132.0 mmol/L (136-145)
[2025-02-23 15:43] VITALS: PULSE 68
--- NOTE | 2025-02-23 18:56 | Discharge Summary ---
Discharge Summary Date of Service February 23, 2025 Principal Dx & Hospital Course #1 = Principal Diagnosis (1) COVID-19 virus infection: Minh Sevilla is a 70 yo male with PMH of sacroidosis, diabetes insidipous, transaminitis (from NSAID and tyenolol), hypothyroidism. since 4-5 days ago, he's been having fatigue, diffuse body ache, anorexia. on 02/22, came to ur ED for evaluation. he's been having headache and was following with PT for cervical disc headche. his CTA head and neck negative for bleeding of large vessel thrombosis. however, he's wsa found to has covid infection and also noted to has hyponatrema with sodium of 125. (baseline of 134) 1. acute hyponatremia 2. covid 3. diffuse body ache. 4. hx of DI on desmopressin 5. hypothyroidism 6. GERD 7. hypertension 8. sacroidosis 9. fatty liver 10. hx of transaminits from NSAID and acetinophen 1. acute hyponatremia suspect related to anorexia regular diet, ensure supplement c/w home med of desmopressin 0.2mg BID he received ensure supplement and salt tablet and his hyponatremia improved to 130-131 and stable he will has repeat BMP in 48 hours 2. covid infection, he's on room air respiratory status stable provided with paxlovid for 5 days 3. diffuse body ache. f/u on phosphate and magnesium level duplex US negative for DVT 4. hypothyroidism-levothyroxine 88mcg 5. GERD, PPI 20mg 6. HLD, crestor 5mg 7. hx of transaminitis was seen at [facility] they are concerned about transaminitis from NSAID and tyenolol use discussed at length about need to avvoid alcohol and avoid high carb diet 8. hypertension-amlodipine 2.5mg DVT-heparin subQ (2) Body aches: Notes For Next Care Provider repeat BMP in 48 hours monitor LFT and INR level emphasize the benefit of carb control diet and Mediterranean diet Admission HPI Per Admitting Provider Minh Sevilla is a 70 yo male with PMH of diabetes insipidus, sacroidosis, liver cirrhosis, GERD, hiatal hernia, hypothyroidism, colonic polyps. He been having 4-5 days history of diffuse body achy, fatigue, and anorexia and vomiting. he's was having headache and cervical spine disorder and been going to PT for evaluation. for his cirrhosis, he's was following hepatology at [facility] (Dr. Alex Brock) and evaluate him for transaminitis, hepatology was concerned about med induced hepatoxic injury from NSAID and acetominophen and underlying fatty liver. He was recommended to have mediterranean low carb diet on 02/22 (thursday), he's have diffuse body ache, fatigue, and headache. his CT head negative for bleeding and he's was found to has covid infection. noted to has hyponatremia with 126, his baseline is 134. on interview, he denied shortness of breath, denied congestion, or chest pain he's denied any abdominal pain. no diarrhea. Discharge Exam VITALS: Reviewed. WEIGHT/BMI reviewed. GEN: Healthy appearing, well-developed, NAD. PSYCH: Good Judgment. AOx3. Normal memory, mood, and affect. HEENT -Head: NC/AT; NECK: Supple, with no masses. CV: RRR, no m/r/g. LUNGS: CTAB, no w/r/c. no wheezing; no rales ABD: Soft, NT/ND, NBS, no masses or organomegaly. : N/A SKIN: Warm, well perfused. No skin rashes or abnormal lesions. MSK: No deformities, Normal gait. EXT: No clubbing, cyanosis, or edema. NEURO: AAOx3 Discharge Plan Discharge Items Patient Disposition: Home - Home Health Services Reason For Visit: hyponatremia, covid, diffuse body ache Discharge Diagnosis: hyponatremia, covid Condition on Discharge: Good Activity: Per Instructions section Lifting: Gradually increase as tolerated Non-emergency contact: Primary Care Provider Call non-emergency contact if: your symptoms worsen, your pain is unusual for you and you have a fever Follow-up/Referrals: Belen Martines MD [Primary Care Provider] - Diet: Regular Addtl Attending Provider Instructions: avoid exposure to heat limited alcohol avoid high carb diet (pasta, rice, bread) Pending Studies at Discharge: Yes Studies:: repeat BMP (basic metabolic panel) Stand-Alone Forms: My [facility] Writer's Bloq, Smoking Cessation Medications and DC Order Prescriptions: New Paxlovid 300 mg (150 mg x 2)-100 mg tablets,dose pack See Rx Instructions .ROUTE .COMPLEX 5 Days Qty: 30 0RF Rx Instructions: take TWO 150 mg tablets of nirmatrelvir with ONE 100 mg tablet of ritonavir twice daily for 5 days Continued amlodipine 2.5 mg tablet 2.5 mg PO QAM Qty: 90 3RF cholecalciferol (vitamin D3) 25 mcg (1,000 unit) capsule 25 mcg PO QAM Patient Comments: 02/22- otc unable to verify multivitamin [Daily Multi-Vitamin] tablet 1 tab PO QAM Patient Comments: 02/22- otc unable to verify omeprazole 20 mg capsule,delayed release(DR/EC) 20 mg PO QAM Qty: 90 3RF levothyroxine 88 mcg tablet 88 mcg PO QAM Qty: 90 3RF rosuvastatin 5 mg tablet 5 mg PO QAM methocarbamol 500 mg tablet 0 mg PO TID Patient Comments: last filled 01/26 7 day supply #20 desmopressin 0.2 mg tablet 0.2 mg PO UD Rx Instructions: 1 tab in AM / 0.5 tab in midday / 1 tab in PM fluticasone propionate [Flonase Allergy Relief] 50 mcg/actuation spray,suspension 0 spray intranasal BID Patient Comments: last filled 10/13 30 day supply Rx Instructions: administer into each nostril Discharge Orders: Discharge Order (Routine); Ordered 02/23/25 Ordered By: Clayton Mcgee/Other Patient Handouts: NAFLD, 2019 Novel Coronavirus Admission Data Admit Date/Time: 02/22/25 10:09 Attending Provider: Clayton Wiggins Admit Provider: Clayton Wiggins Primary Care Provider: Belen Martines Other Providers: Clayton Wiggins Other Interventions: Discharge Summary Assessment (RN) Last Done: 02/23/25 15:42 Hospital Stay Data Consultations 02/22/25 10:20 ED Decision to Admit Stat Diagnostic Imagining Performed 02/22/25 08:00 CTA head wo/w [CT angio head wo/w] Stat CTA neck with con [CT angio neck with con] Stat 02/23/25 09:36 US venous duplex leg [US venous doppler LE BI] Routine Pending Results Patient Have Any Pending Studies at Discharge: Yes Discharge Instructions Given to Patient (Per Discharging Provider) avoid exposure to heat limited alcohol avoid high carb diet (pasta, rice, bread) Total Time Total Time Spent Total Time Spent (In Minutes): 35 Coding Level of Care Code 58069 INP/OBS DISCH >30 MIN Diagnoses COVID-19 virus infection U07.1 Body aches R52 Time Spent (min) 35
== END 2025-02-23 15:43 | disposition home or self-care (01) | DRG 178 ==
LOC: ED 07:35 → INTOOBSV 10:09 → EDINP 10:09 → 2S 12:36